=== PATIENT | female | born 1955 | race Caucasian/White ===

== ENCOUNTER 2017-12-19 17:43 | Inpatient (IN) | payer OTHER ==
[2017-12-19] VITALS (9 sets, daily range): BP systolic 148–213; BP diastolic 78–119
[~2017-12-19] VITALS: Ht 160 cm; Wt 81.6 kg
[2017-12-19] MEDS ORDERED: ZYRTEC10 M5 PO (17:49)
[2017-12-19 18:04] LABS: ABSOLUTE BASOPHILS 0.1 thou/uL (0.0-0.2); ABSOLUTE EOSINOPHILS 0.1 thou/uL (0.0-0.7); ABSOLUTE LYMPHOCYTES 1.5 thou/uL (0.8-5.3); ABSOLUTE MONOCYTES 0.7 thou/uL (0.0-1.2); ABSOLUTE NEUTROPHILS 7.9 thou/uL (1.6-8.1); BASOPHILS 0.6 %; EOSINOPHILS 0.5 %; HEMATOCRIT 44.3 % (37.0-47.0); LYMPHOCYTES 14.5 %; MCH 29.4 pg (26.0-34.0); MCHC 33.8 g/dL (28.0-37.0); NUCLEATED RBCS 0 /100WBC; PLATELET COUNT* 267 thou/uL (150-400); POLYS 77.4 %; RBC 5.09 mil/uL (4.20-5.00); RDW-CV 13.6 % (10.5-14.5); WBC 10.2 thou/uL (4.0-11.0)
[2017-12-19 18:13] LABS: CALCIUM 9.3 mg/dL (8.5-10.1); CREATININE 0.6 mg/dL (0.6-1.3); POTASSIUM 4.2 mmol/L (3.5-5.1)
[2017-12-19 18:19] LABS: ALBUMIN 3.7 g/dL (3.4-5.0); MAGNESIUM 1.8 mg/dL (1.8-2.4); TOTAL BILIRUBIN 0.5 mg/dL (<0.1-1.0); TOTAL PROTEIN 7.7 g/dL (6.4-8.2)
[2017-12-19 18:23] LABS: TROPONIN-I LEVEL 0.9 ng/mL (<0.06)
[2017-12-19 19:10] LABS: APTT 31.5 Seconds (25.0-31.3); PROTIME 9.6 Seconds (9.20-11.50)
--- NOTE | 2017-12-19 19:30 | NUR ---
DR. BARNES AND OIL SEPARATOR TEAM AT BEDSIDE.
[2017-12-20] VITALS (9 sets, daily range): BP systolic 128–188; BP diastolic 69–96
--- NOTE | 2017-12-20 04:30 | NUR ---
ASSUMED PT CARE AT 2144, PT WAS BROUGHT IN BY CATH TEAM. PT HAD A RIGHT RADIAL CATH INSERTION SITE, RADSTAT BAND IN PLACE. PT IS TRACING NSR/ST ON THE MONITOR, ON RA SATTING MID TO HIGH 90'S, PT DENIES ANY PAIN AT THIS TIME. POST CATH VITALS COMPLETED CHARTED, RADSTAT GRADUALLLY REDUCED AND REMOVED AT 0200 WITHOUT ISSUE. PRN HYDRALIZINE GIVEN PER AUG. PT IS UP WITH STB TO THE BSC, PT HAS IVF INFUSING PER AUG. ONE STENT PLACED TO THE CIRCUMFLEX ARTERY. ADMISSION COMPLETED CHARTED. BED IN LOW POSITION, CALL LIGHT IN REACH, BED ALARM ON, HOURLY ROUNDING COMPLETED FOR PT SAFETY.
[2017-12-20 05:16] LABS: HEMATOCRIT 42.1 % (37.0-47.0); HEMOGLOBIN 13.8 gm/dL (12.0-15.0); MCH 28.7 pg (26.0-34.0); MCHC 32.9 g/dL (28.0-37.0); MCV 87.1 fL (80.0-100.0); MPV 10.2 fl. (7.2-11.1); RBC 4.83 mil/uL (4.20-5.00); RDW-CV 13.9 % (10.5-14.5); WBC 11.8 thou/uL (4.0-11.0)
[2017-12-20 05:46] LABS: ANION GAP 10 mmol/L (7-16); BUN 5 mg/dL (7-18); CALCIUM 9.2 mg/dL (8.5-10.1); CHLORIDE 104 mmol/L (98-107); CHOLESTEROL 209 mg/dL (<200); CO2 24 mmol/L (21-32); CREATININE 0.5 mg/dL (0.6-1.3); GLUCOSE 261 mg/dL (70-99); HDL CHOLESTEROL 31 mg/dL (>40); LDL CHOLESTEROL 155 mg/dL (<100); POTASSIUM 3.9 mmol/L (3.5-5.1); SODIUM 138 mmol/L (136-145); TC:HDL 6.7 Ratio (Not establshd); TRIGLYCERIDE 117 mg/dL (<150); VLDL 23 mg/dL (<40)
[2017-12-20 05:47] LABS: SERUM ASSESSMENT Clear
[2017-12-20 06:35] LABS: TROPONIN-I LEVEL 48.95 ng/mL (<0.06)
--- NOTE | 2017-12-20 07:19 | CON ---
[address] [address] CONSULTATION Name: RAMOS MORALES Room: [address] ADM IN M.R.#: [id number] Admission: 12/19/17 Attend Phys: Woody Ho MD, F Discharge: Date of : 51 Report #: [id number] THIS REPORT FOR: //name// CC: Woody Ho [facility] physician/PCP Nathaniel Porter DO DATE OF SERVICE: 12/19/2017 TYPE OF REPORT: Cardiology consultation. HISTORY OF PRESENT ILLNESS: The patient is a 62-year-old white female who I was asked to see in the hospital today after she complained of chest pain. The patient has no previous history of heart disease. She has had a stress test in the past. The history is obtained from the patient as well as some old records. The patient does have a history of chronic back pain and has been to the pain clinic. She does not exercise on a regular basis. Starting yesterday, she began to have intermittent chest tightness. It occurred off and on. It radiated into her back and left arm. It could last up to an hour and resolved. However, today it persisted. She felt nauseated and the pain got worse. Her finally brought her to the emergency room after it lasted several hours. She denied any shortness of breath or diaphoresis. She was seen in the Emergency Room and noted to have an abnormal ECG. Her troponin is borderline elevated. She had a CT scan of the chest that showed no aortic dissection or pulmonary embolus. Cardiology consultation was requested. At this time, the pain persisted. She does become short of breath with exertion. She has had no palpitations or syncope. She denies recent fever or bleeding. She has had no trauma to her chest. The pain was not related to food. PAST MEDICAL HISTORY: She has had a cholecystectomy and hysterectomy. She has a history of diabetes, hypertension and hyperlipidemia. She used to be on metformin, simvastatin, blood pressure pill, although she stopped taking her medications over a year ago and has not seen a physician for 3 years. ALLERGIES: She has an intolerance of SULFA DRUGS and ZYRTEC. MEDICATIONS: The only medicine she takes is Motrin for arthritis in her knees. FAMILY HISTORY: Her father had heart disease. SOCIAL HISTORY: She is . 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 She lives in [place]. Smokes a pack of cigarettes a day and drinks alcohol occasionally. REVIEW OF SYSTEMS: She has had no history of stroke, asthma, peptic ulcer disease, liver disease, kidney disease, [place] [address] CONSULTATION Name: RAMOS MORALES Room: [address] IN [facility].#: [id number] Admission: 12/19/17 Attend Phys: Woody Ho MD, F Discharge: Date of : 51 Report #: [id number] PHYSICAL EXAMINATION: GENERAL: Revealed a middle-aged female lying in bed. She appeared in mild distress. VITAL SIGNS: She had a blood pressure of 140/70 and pulse is 80. HEENT: She was anicteric. Conjunctivae pink. Mucous membranes moist. NECK: Veins do not appear distended. No carotid bruits. CHEST: Clear to auscultation. CARDIOVASCULAR: Regular rate and rhythm. ABDOMEN: Soft. EXTREMITIES: Had no edema. Dorsalis pedis pulse 1+ bilaterally. SKIN: Cool and dry. NEUROLOGICAL: Nonfocal. RADIOLOGICAL DATA: ECG showed a sinus rhythm with ST-segment depression of a millimeter in I and aVL as well 0.5 mm in V6. Her x-rays, she had a lab work today, is still pending. Her CT scan of the chest report done with contrast reveals no aneurysm dissection. Abdominal aorta has plaque. Her chest x-ray in the Emergency Room reveals a normal heart size and clear lung khanna. LABORATORY DATA: Her lab work included sodium 132, potassium 4.2, her BUN is 8, creatinine 0.6 and glucose 274. Liver function studies were normal. Troponin 0.9. White blood cell count 10.2 and hemoglobin 15. Her laboratory is as stated. IMPRESSION AND RECOMMENDATIONS: 1. Xsb-FO-xocgewakh myocardial infarction. Recommend cardiac catheterization. 2. Diabetes. 3. Hypertension. The patient is not taking her medications. 4. Diabetes. The patient not taking medications. 5. Hyperlipidemia. The patient is not taking her medication. 6. Tobacco abuse. 7. Chronic back pain. <ELECTRONICALLY SIGNED> By: Woody Ho MD, [facility] 12/20/17718 52 Daviestefany Ho MD, [facility] /nt
--- NOTE | 2017-12-20 09:55 | NUR ---
PATIENT ALERT DENIES CP OR SOA. TAKING PO WELL UP TO CHAIR. VS WNL. GAVE ZOFRAN FOR NAUSEA TIMES ONE WITHOUT CHEST PAIN.
--- NOTE | 2017-12-20 11:15 | NUR ---
SPOKE WITH PT. SHE LIVES WITH HER , HAS BEEN ACTIVE AND INDEP AT HOME. PT HAS SUPPORTIVE FAMILY. PT DENIES ANY DISCHARGE NEEDS. PT KNOWS SHE NEEDS ANOTHER CATH WITH STENT, SHE SAID SHE THINKS THAT WILL BE ON WEDNESDAY. DISCUSSED ROLE OF CASE MGT, WILL CONTINUE TO FOLLOW.
--- NOTE | 2017-12-20 14:21 | NUR ---
PATIENT UP IN ROOM NO CP OR ECTOPY REPORT GIVEN TO LETITIA. TRANSFERED TO RM 205.
--- NOTE | 2017-12-20 18:14 | 2DMMODE ---
[place] [address] 2 D/M-MODE ECHOCARDIOGRAM Name: RAMOS MORALES Room: [address] IN ..#: [id number] Admission: 12/19/17 Attend Phys: Woody Ho MD Discharge: Date of : 51 Date of Service: 12/20/17 1813 Report #: [id number] THIS REPORT FOR: //name// APPROVED REPORT Study performed: 12/20/2017 09:43:10 EXAM: Comprehensive 2D, Doppler, and color-flow Echocardiogram Patient Location: In-Patient Room #: 003 Status: routine BSA: 1.85 HR: 86 bpm BP: 150/90 mmHg Rhythm: NSR Other Information Study Quality: Good Indications Acute ND 2D Dimensions LVEF(%): 41.92 (>50%) IVSd: 11.48 (7-11mm) LVOT Diam: 19.24 (18-24mm) LVDd: 46.15 mm PWd: 11.35 (7-11mm) Ascending Ao: 34.52 (22-36mm) LVDs: 36.69 (25-40mm) Aortic Root: 31.30 mm Chou's LVEF: 41.92 % Volumes Left Atrial Volume (Systole) LA ESV Index: 34.90 mL/m2 Aortic Valve AoV Peak Teo.: 1.31 m/s AO Peak Gr.: 6.84 mmHg LVOT Max P.06 mmHg AO Mean Gr.: 3.97 mmHg LVOT Mean P.22 mmHg LVOT Max V: 1.12 m/s AO V2 VTI: 25.33 cm LVOT Mean V: 0.67 m/s GABBIE (VTI): 2.38 cm2 LVOT V1 VTI: 20.70 cm Mitral Valve E/A Ratio: 0.63 [place] [address] 2 D/M-MODE ECHOCARDIOGRAM Name: RAMOS MORALES Room: [address] IN .R.#: [id number] Admission: 12/19/17 Attend Phys: Woody Ho MD Discharge: Date of : 51 Date of Service: 12/20/17 1813 Report #: [id number] MV Decel. Time: 163.68 ms MV E Max Teo.: 0.78 m/s MV PHT: 47.47 ms MVA (PHT): 4.63 cm2 TDI E/Lateral E': 7.09 E/Medial E': 8.67 Medial E' Teo.: 0.09 m/s Lateral E' Teo.: 0.11 m/s Pulmonary Valve PV Peak Teo.: 0.98 m/s PV Peak Gr.: 3.87 mmHg Left Ventricle The left ventricle is normal size. Regional wall motion abnormalities are noted with mild lateral hypokinesis Borderline concentric left ventricular hypertrophy. Left ventricular systolic function is normal. The left ventricular ejection fraction is within the normal range. LVEF is 50-55%. Grade I - abnormal relaxation pattern. Right Ventricle The right ventricle is normal size. The right ventricular systolic function is normal. Atria The left atrium size is normal. The right atrium size is normal. Aortic Valve The aortic valve is normal in structure. No aortic regurgitation is present. There is no aortic valvular stenosis. Mitral Valve The mitral valve is normal in structure. Mild mitral regurgitation. No evidence of mitral valve stenosis. Tricuspid Valve The tricuspid valve is normal in structure. There is no tricuspid valve regurgitation noted. Pulmonic Valve The pulmonary valve is normal in structure. There is no pulmonic valvular regurgitation. Great Vessels The aortic root is normal in size. IVC [place] [address] 2 D/M-MODE ECHOCARDIOGRAM Name: RAMOS MORALES Room: [address] IN M.R.#: [id number] Admission: 12/19/17 Attend Phys: Woody Ho MD Discharge: Date of : 51 Date of Service: 12/20/17 1813 Report #: [id number] collapses with >50% inspiration Pericardium There is no pericardial effusion. <Conclusion> The left ventricle is normal size. Borderline concentric left ventricular hypertrophy. Left ventricular systolic function is normal. The left ventricular ejection fraction is within the normal range. LVEF is 50-55%. Grade I - abnormal relaxation pattern. The right ventricle is normal size. The left atrium size is normal. The aortic valve is normal in structure. The mitral valve is normal in structure. Mild mitral regurgitation. The tricuspid valve is normal in structure. IVC is normal in size and collapses with >50% inspiration There is no pericardial effusion. Regional wall motion abnormalities are noted with mild lateral hypokinesis <ELECTRONICALLY SIGNED> By: Daryl Pepper MD, FACC 12/20/171812 12 12 Daryl Pepper MD, FACC /INF
--- NOTE | 2017-12-20 18:43 | NUR ---
RECEIVED REPORT FROM ALEX IN ICU. PT TRANSFERED TO UNIT AROUND 1445. ASSUMED CARE. PT A&O X4. VSS. O2 SAT >90% ON RA. SOCIAL SERVICES AIDE IN PLACE TRACING 92. LUNGS CLR/DIM THROUGHOUT. SKIN INTACT. RIGHT RADIAL CATH SITE DRESSING CDI. IV'S TO RIGHT AND LEFT AC INTACT AND SALINE LOCKED. PT DENIES PAIN OR DISCOMFORT. PT SEEN BY CARDIAC REHAB NURSE, PT TO HAVE ADDITIONAL CARDIAC CATH WEDNESDAY. FAMILY AT BEDSIDE THIS AFTERNOON. PT INFORMED OF PLAN OF CARE, COMMUNCIATES UNDERSTANDING. THIS RN AGREES WITH ASSESSMENT AND CHARTING OF ALEX GUTIÉRREZ. PT CURRENTLY RESTING IN BED WATCHING TV. CALL LIGHT IS WITHIN REACH, LOW FALL RISK PRECAUTIONS IN PLACE. HOURLY ROUNDING PERFORMED. WCTM FOR DURATION OF SHIFT.
--- NOTE | 2017-12-20 22:59 | NUR ---
RECEIVED REPORT AND ASSUMED CARE OF PATIENT AT 1930. THREADING MACHINE FEEDER AUTOMATIC IN PLACE TRACING SR. ASSESSMENT AND VITALS COMPLETED CHARTED, VSS. PATIENT A&OX4. PATIENT DENIES PAIN AND DISCOMFORT. RIGHT RADIAL CATH SITE DRESSING C/D/I. THERE IS SOME BRUISING NOTED ABOVE THE CATH SITE, HOWEVER, IT IS SOFT AND NON-TENDER. GOAL IS FOR PATIENT TO REMAIN WITHOUT CHEST PAIN AND HAVE NO COMPLICATIONS WITH RADIAL CATH SITE. CALL LIGHT WITHIN REACH
[2017-12-21] VITALS (8 sets, daily range): BP systolic 109–168; BP diastolic 57–100
[2017-12-21 05:25] LABS: CALCIUM 9.3 mg/dL (8.5-10.1); CREATININE 0.5 mg/dL (0.6-1.3); POTASSIUM 3.9 mmol/L (3.5-5.1)
[2017-12-21 05:34] LABS: TROPONIN-I LEVEL 12.07 ng/mL (<0.06)
--- NOTE | 2017-12-21 05:37 | NUR ---
PATIENT PROGRESSING TOWARDS GOALS: RIGHT RADIAL CATH SITE DRESSING REMAINS C/D/I, NO HEMATOMA OR SIGNS OF BLEEDING. PATIENT DENIES CHEST PAIN AND DISCOMFORT THROUGHOUT SHIFT. TROPONIN TRENDING DOWN. VSS ON ROOM AIR. HOURLY ROUNDING OBSERVED. CALL LIGHT WITHIN REACH
--- NOTE | 2017-12-21 07:45 | NUR ---
RECEIVED REPORT. ASSUMED CARE OF PT AT 0730. VSS. CARDIAC MONTIORING IN PLACE SR. AM ASSESSMENT AND VITALS COMPELTED CHARTED. PT ALERT AND ORIENTED. PT ON RA. IV SALINE LOCKED. PT DENIES ANY COMLAITNS OF PAIN OR DISCOMFORT THIS AM. PT SHOWERED THIS AM. PT IS UP INDEPENDENTLY IN ROOM. PT INFORMED OF PLAN OF CARE. PLAN FOR CARDIAC CATH 12/22. PT COMMUNICATES UNDERSTANDING. CALL LIGHT IS WITHIN REACH. WILL CONTINUE TO MONITOR FOR DURATION OF SHFIT.
--- NOTE | 2017-12-21 13:31 | EKG ---
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: SOL : 1955 Requested By: Nathaniel Euceda Order Number: [id number] MD: Bi Paredes Measurements Intervals [place] Rate: 102 P: 72 NM: 201 QRS: 33 QRSD: 121 T: -5 QT: 351 QTc: 458 Interpretive Statements Sinus tachycardia Biatrial enlargement Nonspecific intraventricular conduction delay Anteroseptal infarct, old Minimal ST depression, lateral leads ST elevation, consider inferior injury Baseline wander in lead(s) III No previous ECG available for comparison Electronically Signed On 12-21-2017 13:31:34 CDT by Bi Paredes [email or web address] <ELECTRONICALLY SIGNED> By: Bi Paredes MD, [facility] 12/21/17 1331 1753 1753 Bi Paredes MD, [facility] /EPI
--- NOTE | 2017-12-21 13:31 | EKG ---
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
--- NOTE | 2017-12-21 13:31 | EKG ---
[place] [address] ELECTROCARDIOGRAM REPORT Name: RAMOS MORALES Room: [address] IN .R.#: [id number] Admission: 12/19/17 Attend Phys: Woody Ho MD, F Discharge: Date of : 51 Report #: [id number] THIS REPORT FOR: //name// [facility] ED Test Date: 2017-12-19 Test Time: 17:49:26 Pat Name: RAMOS MORALES Department: Room: Gender: F Captain Of Guards: Abdi : 1955 Requested By: Nathaniel Euceda Order Number: [id number] MD: Bi Paredes Measurements Intervals [place] Rate: 106 P: 78 DC: 197 QRS: 64 QRSD: 101 T: -19 QT: 343 QTc: 456 Interpretive Statements Prolonged DC interval Biatrial enlargement Right ventricular hypertrophy No previous ECG available for comparison Electronically Signed On 12-21-2017 13:31:28 CDT by Bi Paredes [email or web address] <ELECTRONICALLY SIGNED> By: Bi Paredes MD, [facility] 12/21/17 1331 1749 1749 Bi Paredes MD, [facility] /EPI
--- NOTE | 2017-12-21 13:32 | EKG ---
[place] [address] ELECTROCARDIOGRAM REPORT Name: RAMOS MORALES Room: [address] IN .R.#: [id number] Admission: 12/19/17 Attend Phys: Woody Ho MD, F Discharge: Date of : 51 Report #: [id number] THIS REPORT FOR: //name// [facility] Test Date: 2017-12-19 Test Time: 22:27:03 Pat Name: RAMOS MORALES Department: Room: Gender: F Treasury Associate: : 1955 Requested By: Nathaniel Euceda Order Number: [id number] MD: Bi Paredes Measurements Intervals [place] Rate: 97 P: 150 IN: 210 QRS: -25 QRSD: 99 T: -35 QT: 396 QTc: 503 Interpretive Statements Sinus or ectopic atrial rhythm Borderline prolonged IN interval Left atrial enlargement Inferior infarct, age indeterminate Anterior infarct, old Prolonged QT interval No previous ECG available for comparison Electronically Signed On 12-21-2017 13:32:22 CDT by Bi Paredes [email or web address] <ELECTRONICALLY SIGNED> By: Bi Paredes MD, [facility] 12/21/17 1332 2227 2227 Bi Paredes MD, [facility] /EPI
--- NOTE | 2017-12-21 13:32 | EKG ---
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: RAMESH : 1955 Requested By: Nathaniel Euceda Order Number: [id number] Reading MD: Bi Paredes Measurements Intervals [place] Rate: 98 P: 71 [place]: 207 QRS: 14 QRSD: 94 T: 42 QT: 364 QTc: 465 Interpretive Statements Sinus rhythm Borderline prolonged UT interval LAE, consider biatrial enlargement Probable anteroseptal infarct, recent No previous ECG available for comparison Electronically Signed On 12-21-2017 13:31:59 CDT by Bi Paredes [email or web address] <ELECTRONICALLY SIGNED> By: Bi Paredes MD, [facility] 12/21/17 1331 1834 1834 Bi Paredes MD, [facility] /EPI
--- NOTE | 2017-12-21 13:37 | EKG ---
[place] [address] ELECTROCARDIOGRAM REPORT Name: RAMOS MORALES Room: [address] ADM IN .R.#: [id number] Admission: 12/19/17 Attend Phys: Woody Ho MD, F Discharge: Date of : 51 Report #: [id number] THIS REPORT FOR: //name// [facility] Test Date: 2017-12-20 Test Time: 07:42:24 Pat Name: RAMOS MORALES Department: Room: [address] Gender: F Roll Weigher: [facility] : 1955 Requested By: Woody Ho Order Number: [id number] Reading : Bi Paredes Measurements Intervals [place] Rate: 88 P: 77 [place]: 211 QRS: 2 QRSD: 95 T: 65 QT: 325 QTc: 394 Interpretive Statements Sinus rhythm Right atrial enlargement Anterior infarct, old No previous ECG available for comparison Electronically Signed On 12-21-2017 13:36:56 CDT by Bi Paredes [email or web address] <ELECTRONICALLY SIGNED> By: Bi Paredes MD, [facility] 12/21/17 1336 1 Bi Paredes MD, [facility] /EPI
--- NOTE | 2017-12-21 17:06 | NUR ---
VSS. CARDIAC MONTIORING IN PLACE WITH NO CHANGES THIS SHIFT. PT PROGRESSING TOWARDS GOALS. PT REMAINS ON RA. PT REMAINS ALET AND ORIENTED. PT VOICED NO COMPLAINTS OF PAIN OR DISCOMFORT THIS SHIFT. PT'S BLOOD SUARS ELEVATED THIS SHIFT. PT HAD MULTIPLE VISITORS THIS SHIFT. PT IS UP INDEPENDENTLY IN ROOM. PLAN FOR CATH TOMORROW. PT INFORMED OF PLAN OF CARE. CALL LIGHT IS WITHIN REACH. WILL CONTINUE TO MONTIOR FOR DURATION OF SHIFT.
--- NOTE | 2017-12-21 22:00 | NUR ---
Received report and assumed care of patient at 1930. environmental monitoring technician in place tracing SR. Assessment and vitals completed as charted, VSS on room air. Patient A&Ox4. Patient denies pain and discomfort. Right radial cath site open to air, no bleeding or hematoma. Bruising noted above site but is non-tender and soft. Patient NPO for cardiac cath 12/22. Patient aware and verbalizes understanding. Goal is to rest comfortably without pain or discomfort. Call light within reach
[2017-12-22] VITALS (11 sets, daily range): BP systolic 130–196; BP diastolic 60–99
--- NOTE | 2017-12-22 03:33 | NUR ---
Patient moved to room 225 for maintainance of plumbing. All patient's belongings moved and patient settled in new room. Call light within reach
--- NOTE | 2017-12-22 07:51 | CARD ---
[address] [address] CARDIAC CATH REPORT Name: RAMOS MORALES Room: [address] IN .R.#: [id number] Admission: 12/19/17 Attend Phys: Woody Ho MD, F Discharge: Date of : 51 Report #: [id number] THIS REPORT FOR: //name// APPROVED REPORT Study performed: 12/19/2017 20:07:54 Patient Details Patient Status: In-Patient Room #: The patient is a 62 year-old female Event Personnel Woody Ho Senior Qa Engineer, Humberto Mckenna Monitor, Fang Perez RN, Brittany Stephenson RTR Scrub Procedures Performed Left Heart Cath w/or w/o Coronaries [id number] [facility] [address] w/wo Plasty Single CIRC 324201 Hemostasis with Hemoband Indication Abnormal ECG, Non-STEMI , Chest pain Risk Factors Arterial Hypertension, Hypercholesterolemia, Diabetes Tobacco History () Admission/Lab Medications/Medications given during procedure Platelet Aff. Inhib., Heparin Unfract. Procedure Narrative The patient was brought urgently to the Cardiac Catheterization Laboratory and was prepped and draped in a sterile manner. The right wrist was infiltrated with 2% Lidocaine subcutaneous anesthesia. A Slender Glidesheath sheath was inserted into the right radial artery. Coronary angiography was performed using coronary diagnostic catheters. The right coronary system was accessed and visualized with a JR4 5fr catheter. The left coronary system was accessed and visualized with a JL 3.5 5fr catheter. Left ventricular/Aortic Valve gradient assessed via catheter pullback. Closure device was deployed with a 6 Fr Vasc-Band Reg 24cm. The patient tolerated the procedure well and there were no complications associated with the procedure. There was no hematoma. Intraoperative Conscious Sedation Sedation start time: 20:05 Case end Time: [place] [address] CARDIAC CATH REPORT Name: RAMOS MORALES Room: [address] IN [facility].#: [id number] Admission: 12/19/17 Attend Phys: Woody Ho MD, F Discharge: Date of : 51 Report #: [id number] 20:54 Fentanyl 25 mcg Versed 2 mg Fluoro Time: 6.3 minutes Dose: DAP 95434 cGycm2 1344 mGy Contrast Type and Amount: Omnipaque 110 ml Coronary Angiography The patient's coronary anatomy is right dominant. Diagnostic Cath Left Main 0% stenosis LAD 80% mid stenosis Circumflex acutely occluded after small first marginal branch OM2 chronically occluded and fills by collaterals OM3 80% mid stenosis R PDA 80% proximal stenosis RPLV 70% proximal, 70% mid, and 70% distal stenosis Left Ventriculography Left Ventriculography was not performed. Hemodynamics The aortic pressure is 155/84 mmHg with a mean of mmHg. The left ventricular pressure is 159/10 mmHg with a mean of mmHg. The left ventricular end diastolic pressure is 21 mmHg. There was no gradient across the aortic valve upon pullback. Pullback from the left ventricle to the aorta revealed no gradient across the aortic valve. PCI Technique Lesion Anticoagulation was achieved with Heparin. iv aggrastat was given Patient was preloaded with Brillinta. Percutaneous coronary intervention was performed on the proximal circumflex artery segment. The lesion stenosis prior to intervention was 100% with NOAH 0 flow. A 6FR XB 3.5 100CM Guide Catheter was used to engage the lm ostium. A IG: BMW 190cm Interventional Guidewire was used to cross the lesion. BALLOON DILATION A Balloon catheter Trek RX 2.5 X 8 was inserted and inflated up to 10.00atm for 11seconds. Repeat angiography revealed the following post-dilatation results: 80% stenosis. Additional Inflation: 12.00atm for 14seconds. Additional Inflation: 14.00atm [place] 14[place]. [place] [address] CARDIAC CATH REPORT Name: RAMOS MORALES Room: [address] IN [facility].#: [id number] Admission: 12/19/17 Attend Phys: Woody Ho MD, F Discharge: Date of : 51 Report #: [id number] STENT DEPLOYMENT A bare metall stent Vision RX 2.75 X 15 was inserted and inflated up to 11.00atm for 14seconds. Repeat angiography revealed the following post-stent deployment results: 0% stenosis. Additional Inflation: 15.00atm for 20seconds. Final angiography reveals 0 % stenosis with NOAH 3 flow. Conclusion 1. diffuse multivessel cad 2. acute occlusion of the mid circumflex artery 3. successful placement of a bare metal stent in the proximal circumflex artery Recommendations Smoking Cessation Aggressive Medical Therapy Medical Therapy CABG Medications Administered Ticagrelor <ELECTRONICALLY SIGNED> By: Woody Ho MD, [facility] 12/20/17 1302 1302 1302Daviestefany Ho MD, [facility] /INF
[2017-12-23 00:24] VITALS: BP 145/77
--- NOTE | 2017-12-23 03:57 | NUR ---
ASSUMED PT CARE 193. ASSESSMENT COMPLETED CHARTED. PT UP OFF BEDREST AT 10PM WITH NO COMPLICATIONS. SITE IS CLEAN, DRY, WITH SLIGHT BRUISING NOTED AROUND GUAZE PAD, NO HARD AREAS OR SWELLING NOTED. PT DENIES PAIN. PT RESTING IN BED AT THIS TIME. POSS D/C TODAY. WILL CONTINUE TO MONITOR.
[2017-12-23 04:36] LABS: HEMATOCRIT 37.9 % (37.0-47.0); HEMOGLOBIN 12.7 gm/dL (12.0-15.0); MCHC 33.5 g/dL (28.0-37.0); MCV 86.7 fL (80.0-100.0); MPV 10.1 fl. (7.2-11.1); RBC 4.37 mil/uL (4.20-5.00); RDW-CV 13.7 % (10.5-14.5); WBC 8.4 thou/uL (4.0-11.0)
[2017-12-23 05:38] VITALS: BP 139/69
[2017-12-23 05:57] LABS: ALBUMIN 2.9 g/dL (3.4-5.0); CREATININE 0.4 mg/dL (0.6-1.3); POTASSIUM 4.3 mmol/L (3.5-5.1); TOTAL BILIRUBIN 0.5 mg/dL (<0.1-1.0); TOTAL PROTEIN 5.8 g/dL (6.4-8.2)
[2017-12-23 05:58] LABS: TROPONIN-I LEVEL 5.91 ng/mL (<0.06)
[2017-12-23 08:30] VITALS: BP 167/96
[2017-12-23 11:26] VITALS: BP 136/73
[2017-12-23] MEDS ORDERED: ATORVASTATIN CA40 MG PO (11:32)
[2017-12-23] MEDS ORDERED: CARVEDILOL3.125 MG PO (11:32)
[2017-12-23] MEDS ORDERED: LISINOPRIL5 MG PO (11:32)
[2017-12-23] MEDS ORDERED: BRILINTA90 MG PO (11:32)
[2017-12-23] MEDS ORDERED: ASPIR 8181 MG PO (11:32)
[2017-12-23] MEDS ORDERED: GLUCOTROL5 MG PO (11:32)
[2017-12-23] MEDS ORDERED: GLUCOPHAGE500 MG PO (11:32)
[2017-12-23] MEDS ORDERED: NITROGLYCERIN0.4 MG SUBLING (11:32)
[2017-12-23 11:46] VITALS: BP 136/73
--- NOTE | 2017-12-23 13:04 | EKG ---
[place] [address] ELECTROCARDIOGRAM REPORT Name: RAMOS MORALES Room: [address] ADM IN M.R.#: [id number] Admission: 12/19/17 Attend Phys: Woody Ho MD, F Discharge: Date of : 51 Report #: [id number] THIS REPORT FOR: //name// [facility] Test Date: 2017-12-22 Test Time: 18:16:52 Pat Name: RAMOS MORALES Department: Room: [address] Gender: F Inspector And Mender: ALLIE : 1955 Requested By: Daryl Pepper Order Number: [id number] Taran MD: Daryl Pepper Measurements Intervals [place] Rate: 80 P: 75 NM: 204 QRS: 7 QRSD: 89 T: 24 QT: 373 QTc: 431 Interpretive Statements Sinus rhythm Biatrial enlargement Anterior infarct, old Compared to ECG 12/20/2017 07:42:24 No significant changes Electronically Signed On 12-23-2017 13:04:05 CDT by Daryl Pepper [email or web address] <ELECTRONICALLY SIGNED> By: Daryl Pepper MD, [facility] 12/23/17 1304 181 15 Daryl Pepper MD, [facility] /EPI
--- NOTE | 2017-12-23 13:07 | EKG ---
[place] [address] ELECTROCARDIOGRAM REPORT Name: RAMOS MORALES Room: [address] ADM IN M.R.#: [id number] Admission: 12/19/17 Attend Phys: Woody Ho MD, F Discharge: Date of : 51 Report #: [id number] THIS REPORT FOR: //name// [facility] Test Date: 2017-12-23 Test Time: 03:37:01 Pat Name: RAMOS MORALES Department: Room: [address] Gender: F Natural History Collections Curator: patti : 1955 Requested By: Daryl Pepper Order Number: [id number] Taran MD: Daryl Pepper Measurements Intervals [place] Rate: 76 P: 73 NC: 202 QRS: -4 QRSD: 96 T: 37 QT: 411 QTc: 463 Interpretive Statements Sinus rhythm Right atrial enlargement Anterior infarct, old Compared to ECG 12/20/2017 07:42:24 No significant changes Electronically Signed On 12-23-2017 13:07:22 CDT by Daryl Pepper [email or web address] <ELECTRONICALLY SIGNED> By: Daryl Pepper MD, [facility] 12/23/17 1307 0337 6 Daryl Pepper MD, FAC /EPI
--- NOTE | 2017-12-23 13:32 | NUR ---
ASSUMED PT CARE AT 0730, FULL ASSESMENT DONE CHARTED. PT A/O X4, DENIES PAIN, UP AD NOEMY. SR ON THE MONITOR, VSS, LABS REVIEWED. RECIEVED DISCHARGE ORDERS. PT PROVIDED WITH GLUCOMETER, WAS GIVEN SCRIPTS AND CARENOTES, REVIEWED DISCHARGE ORDERS WITHPT, ALL QUESTIONS ANSWERED. PT DISCHARGED HOME WITH AT APPROX 1330
--- NOTE | 2017-12-23 13:52 | CARD ---
[address] [address] CARDIAC CATH REPORT Name: RAMOS MORALES Room: [address] IN M.R.#: [id number] Admission: 12/19/17 Attend Phys: Woody Ho MD, F Discharge: 12/23/17 Date of : 51 Report #: [id number] THIS REPORT FOR: //name// APPROVED REPORT Study performed: 12/22/2017 14:59:40 Patient Details Patient Status: In-Patient Room #: 225 The patient is a 62 year-old female Event Personnel Daryl Pepper Box Hinge And Lock Attacher, Selam Marquez RN RN, Harriet Le Monitor, Kamala Chi RTNadeen Monitor, Jaden Ashton Scrub Procedures Performed Art Access - R femoral artery* , Left Heart Catheterization, Selective Right and Left Coronary Angiography; left heart catheterization, PTCA with Stenting Indication Non-STEMI , Chest pain Risk Factors Hypercholesterolemia, Hypertension Previous Procedures/Diagnoses Previous PCI, Previous MA Admission/Lab Medications/Medications given during procedure Platelet Aff. Inhib., Angiomax bolus and infusion Procedure Narrative The patient was brought electively to the Cardiac Catheterization Laboratory and was prepped and draped in a sterile manner. The right femoral was infiltrated with 2% Lidocaine subcutaneous anesthesia. A 6fr Ultimum Sheath sheath was inserted into the right femoral artery. Coronary angiography was performed using coronary diagnostic catheters. The right coronary system was accessed and visualized with a 6FR JR4 catheter. The left coronary system was accessed and visualized with a 6FR JL4 catheter. The left ventricle was accessed and visualized with a 6FR PIGTAIL catheter. Left ventricular/Aortic Valve gradient assessed via catheter pullback. Pre-demployment femoral angiogram was performed . Closure [place] [address] CARDIAC CATH REPORT Name: RAMOS MORALES Room: [address]#: [id number] Admission: 12/19/17 Attend Phys: Woody Ho MD, F Discharge: 12/23/17 Date of : 51 Report #: [id number] 6 Fr Angioseal STS 6Fr. Hemostasis was obtained with manual pressure following sheath removal without any complications. The patient tolerated the procedure well and there were no complications associated with the procedure. There was no hematoma. Intraoperative Conscious Sedation Sedation start time: 15:33 Case end Time: 16:32 Fentanyl 25 mcg Versed 2 mg Fluoro Time: 15.9 minutes Dose: DAP [id number] cGycm2 1988.83 mGy Contrast Type and Amount: Visipaque 415 ml Coronary Angiography The patient's coronary anatomy is right dominant. Diagnostic Cath Left Main 0% narrowing LAD 90% mid vessel stenosis Diagonal 1 80% ostial narrowing Circumflex Widely patent mid circumflex stent with tubular 75% stenosis of the mid circumflex beyond the stented region Right Coronary Small but dominant vessel with 70% proximal and 50-60% mid vessel narrowing with small terminal branches to the septum Left Ventriculography Left Ventriculography was not performed. Hemodynamics The aortic pressure is 152/77 mmHg with a mean of 106 mmHg. The left ventricular pressure is 152/13 mmHg with a mean of mmHg. The left ventricular end diastolic pressure is 22 mmHg. There was no gradient across the aortic valve upon pullback. PCI Technique Lesion Anticoagulation was achieved with Angiomax. Percutaneous coronary intervention was performed on the first diagnonal branch segment. The lesion stenosis prior to intervention was 80% with NOAH 3 flow. A 6F XB LAD 3.5 Guide Catheter was used to engage the ostium. A IG: ProwaterFlex 180CM Interventional Guidewire was used to cross the lesion. BALLOON DILATION A Balloon catheter Mini Trek RX 2.0 X 8 was inserted and inflated up to 10.00atm for 8seconds. Additional Inflation: 12.00[place] [address] CARDIAC CATH REPORT Name: RAMOS MORALES Room: [address]#: [id number] Admission: 12/19/17 Attend Phys: Woody Ho MD, F Discharge: 12/23/17 Date of : 51 Report #: [id number] 11seconds. Final angiography reveals 10 % stenosis with NOAH 3 flow. PCI Technique Lesion 2 Percutaneous Coronary Intervention was performed on the mid left anterior descending artery segment. The lesion stenosis prior to intervention was 90% with NOAH 3 flow. A IG: ProwaterFlex 180CM Interventional Guidewire was used to cross the lesion. Balloon Dilation A Balloon catheter Trek RX 2.5 X 15 was inserted and inflated up to 12.00atm for 10seconds. Stent Deployment A drug-eluting stent Xience Alpine RX 2.5X28 was inserted and inflated up to 12.00atm for 10seconds. Additional Inflation: 16.00atm for 10seconds. Additional Inflation: 17.00atm for 11seconds. Final angiography reveals 10 % stenosis with NOAH 3 flow. PCI Technique Lesion 3 Percutaneous Coronary Intervention was performed on the mid circumflex artery segment. The lesion stenosis prior to intervention was 75% with NOAH 3 flow. A IG: BMW 190cm Interventional Guidewire was used to cross the lesion. Balloon Dilation A Balloon catheter Trek RX 2.5 X 15 was inserted and inflated up to 12.00atm for 8seconds. Additional Inflation: 12.00atm for 8seconds. Stent Deployment A drug-eluting stent Xience Alpine RX 2.5X28 was inserted and inflated up to 14.00atm for 11seconds. Additional Inflation: 18.00atm for 9seconds. Post Stent Deployment Balloon Dilation A Balloon catheter NC Trek RX 2.75X15 was inserted and inflated up to 16.00atm for 9seconds. Additional Inflation: 16.00atm for 8seconds. Additional Inflation: 15.00atm for 7seconds. Final angiography reveals 0 % stenosis with NOAH [address] flow[address] Conclusion [address] [place] [address] CARDIAC CATH REPORT Name: RAMOS MORALES Room: [address] IN M.R.#: [id number] Admission: 12/19/17 Attend Phys: Woody Ho MD, F Discharge: 12/23/17 Date of : 51 Report #: [id number] #1 significant multivessel coronary artery disease characterized by the following: A 90% mid LAD stenosis with 80% ostial first diagonal narrowing B 75% tubular narrowing of the mid circumflex beyond the previously stented segment C small but dominant right coronary artery with 70% proximal and 50-60% mid vessel stenosis with 2 small terminal branches to the septum and apex respectively #2 moderate elevation of left ventricular end-diastolic pressure at rest #3 successful percutaneous transluminal coronary angioplasty at the site of 80% first diagonal stenosis with 20% residual narrowing and NOAH-3 flow to the distal vessel #4 successful percutaneous coronary intervention with deployment of drug-eluting stent at site of 90% tubular mid LAD stenosis with 10% residual narrowing and NOAH-3 flow to the distal vessel #5 successful percutaneous coronary intervention with deployment of drug-eluting stent at site of 75% tubular mid circumflex stenosis with 0% residual narrowing and NOAH-3 flow to the distal vessel Recommendations Cardiac Risk Reduction Program Aggressive Medical Therapy Medications Administered Ticagrelor Diagnostic Cath Approved by: Daryl Pepper MD Date/Time: 12/23/17 at 1350 hrs. <ELECTRONICALLY SIGNED> By: Daryl Pepper MD, FACC 12/23/17 1351 1351 1351Daryl Pepper MD, FACC /INF
--- NOTE | 2017-12-24 10:05 | D ---
[address] [address] DISCHARGE SUMMARY Name: RAMOS MORALES Room: [address] IN M.R.#: [id number] Admission: 12/19/17 Attend Phys: Woody Ho MD, F Discharge: 12/23/17 Date of : 51 Report #: [id number] THIS REPORT FOR: //name// CC: Woody Ho [facility] physician/PCP Nathaniel Euceda DATE OF SERVICE: 12/23/2017 FINAL DISCHARGE DIAGNOSES: 1. Lfw-MF-qazqouo elevation myocardial infarction interrupted by stenting of the circumflex. 2. Multivessel coronary artery disease, status post percutaneous coronary intervention of the mid left anterior descending and mid circumflex on 12/23/2017. 3. Type 2 diabetes mellitus. 4. Hypertension. 5. Hyperlipoproteinemia. 6. History of tobacco abuse. 7. Chronic back pain. PROCEDURES: On 12/19/2017 - cardiac catheterization with stenting of the non-dominant circumflex. On 12/23/2017 - cardiac catheterization with stenting of the mid LAD and mid circumflex. HISTORY OF PRESENT ILLNESS: The patient is a 62-year-old female who presented on 12/19/2017 with protracted back and chest discomfort, was found to have a yhg-KM-iblknis elevation myocardial infarction related to total occlusion of the circumflex. Dr. Ho performed urgent catheterization with stenting of the mid circumflex. The patient did well postprocedurally. She was noted to have high grade mid LAD and mid circumflex stenoses as well with diffuse moderate disease throughout and moderate-sized right coronary artery. We discussed the options, elected to proceed with stenting of the mid LAD and mid circumflex after resolution of the events of the initial presentation. She underwent re-catheterization on 12/23/2017 and underwent stenting of the mid LAD with a 2.5 x 28 mm Xience Alpine drug-eluting stent, post-dilated to 2.7 mm with 10% residual narrowing, 2.5 x 28 mm Xience Alpine in the mid circumflex, post-dilated with a noncompliant balloon to 2.8 mm with 0% residual narrowing and NOAH 3 flow to both distal vessels. The patient's peak troponin after the initial infarct was 48 and then gradually fell during the hospitalization. Laboratory on 12/23/2017, after the second catheterization, revealed a hemoglobin 12.7, white blood cell [place] of 8[address] [place] [address] DISCHARGE SUMMARY Name: RAMOS MORALES Room: [address]#: [id number] Admission: 12/19/17 Attend Phys: Woody Ho MD, F Discharge: 12/23/17 Date of : 51 Report #: [id number] platelets of 227,000. Sodium 138, potassium 4.3, BUN 8, creatinine 0.4 and glucose 147 mg percent. DISCHARGE MEDICATIONS: The patient was discharged to home in stable condition on 12/23/2017 on the following medications: Aspirin 81 mg daily; atorvastatin 40 mg at bedtime; carvedilol 3.125 mg b.i.d.; Zyrtec 10 mg daily; glipizide 5 mg b.i.d.; lisinopril 5 mg daily; metformin 500 mg b.i.d., to be resumed on 12/25/2017; ticagrelor 90 mg b.i.d. and p.r.n. sublingual nitroglycerin. The patient is scheduled to return to see Natalia Oconnor on 12/28/2017 at 08:30 and myself on 02/08/2018 at 1400 hours. Thus, the patient is discharged to home in stable condition on the aforementioned medications with followup as iterated above. <ELECTRONICALLY SIGNED> By: Daryl Pepper MD, [facility] 12/24/17 1005 1013 1058Daryl Pepper MD, [facility] /nt
== END 2017-12-23 13:37 | disposition home or self-care (01) | DRG 247 ==
LOC: M.ERS 17:43 → M.CL 17:43 → M.ICU 21:49 → M.TBA-ER 21:49 → M.2W 21:49 → M.ICU 22:08 → M.2W 12-20 14:54
PROVIDERS: Emergency Medicine Emergency Medical Services; Internal Medicine; ADMIT Internal Medicine Cardiovascular Disease
DX: I21.4 Non-ST elevation (NSTEMI) myocardial infarction (principal); I50.32 Chronic diastolic (congestive) heart failure; I25.10 Atherosclerotic heart disease of native coronary artery without angina pectoris; E78.5 Hyperlipidemia, unspecified; I11.0 Hypertensive heart disease with heart failure; E78.00 Pure hypercholesterolemia, unspecified; E11.9 Type 2 diabetes mellitus without complications; F17.210 Nicotine dependence, cigarettes, uncomplicated; G89.29 Other chronic pain; M54.9 Dorsalgia, unspecified; I25.82 Chronic total occlusion of coronary artery; Z88.2 Allergy status to sulfonamides; Z91.14 Patient's other noncompliance with medication regimen; Z90.710 Acquired absence of both cervix and uterus; Z90.49 Acquired absence of other specified parts of digestive tract; Z79.82 Long term (current) use of aspirin; Z79.899 Other long term (current) drug therapy; Z82.49 Family history of ischemic heart disease and other diseases of the circulatory system

== ENCOUNTER → 2018-04-22 | Outpatient (CLI) | payer OTHER ==
[~2018-04-22] MED LIST: ASPIR 8181 MG PO; ATORVASTATIN CA40 MG PO; BRILINTA90 MG PO; CARVEDILOL3.125 MG PO; GLUCOPHAGE500 MG PO; GLUCOTROL5 MG PO; LISINOPRIL5 MG PO; NITROGLYCERIN0.4 MG SUBLING; ZYRTEC10 M5 PO
== END ==
LOC: M.RAD 12:32
DX: Z12.31 Encounter for screening mammogram for malignant neoplasm of breast (principal)

== ENCOUNTER → 2018-07-05 | Outpatient (CLI) | payer BC, OTHER ==
[~2018-07-05] MED LIST changes: +CARVEDILOL12.5 MG PO; +NABUMETONE 750750 M1 PO
== END ==
LOC: M.MRI 06-29 10:04
DX: I67.82 Cerebral ischemia (principal); I65.21 Occlusion and stenosis of right carotid artery; H53.9 Unspecified visual disturbance; I25.2 Old myocardial infarction; R45.86 Emotional lability; H34.8320 Tributary (branch) retinal vein occlusion, left eye, with macular edema

== ENCOUNTER 2018-07-20 07:29 | Observation (INO) | payer BC, OTHER ==
[2018-07-20] VITALS (17 sets, daily range): BP systolic 128–185; BP diastolic 46–79
[~2018-07-20] VITALS: Ht 160 cm; Wt 85.3 kg
[2018-07-20 08:07] LABS: HEMATOCRIT 38.8 % (37.0-47.0); MCH 29.6 pg (26.0-34.0); MCHC 33.5 g/dL (28.0-37.0); MCV 88.3 fL (80.0-100.0); MPV 9.2 fl. (7.2-11.1); RBC 4.39 mil/uL (4.20-5.00); RDW-CV 14.1 % (10.5-14.5); WBC 8.2 thou/uL (4.0-11.0)
[2018-07-20 08:13] LABS: APTT 29.2 Seconds (25.0-31.3); INR 0.9; PROTIME 9.6 Seconds (9.20-11.50)
[2018-07-20 08:14] LABS: ANION GAP 7 mmol/L (7-16); BUN 14 mg/dL (7-18); CALCIUM 9.1 mg/dL (8.5-10.1); CHLORIDE 99 mmol/L (98-107); CO2 27 mmol/L (21-32); CREATININE 0.7 mg/dL (0.6-1.3); GLUCOSE 292 mg/dL (70-99); POTASSIUM 4.5 mmol/L (3.5-5.1); SODIUM 133 mmol/L (136-145)
[2018-07-20] MEDS ORDERED: COZAAR 25 MG TA25 M2 PO (08:14)
[2018-07-20] MEDS ORDERED: LEXAPRO 10 MG T10 MG PO (08:16)
[2018-07-20 08:18] LABS: ALBUMIN 3.8 g/dL (3.4-5.0); ALKALINE PHOSPHATASE 90 U/L (46-116); CHOLESTEROL 154 mg/dL (<200); HDL CHOLESTEROL 57 mg/dL (>40); LDL CHOLESTEROL 81 mg/dL (<100); SERUM ASSESSMENT Clear; SGOT 14 U/L (15-37); SGPT 33 U/L (30-65); TC:HDL 2.7 Ratio (Not establshd); TOTAL BILIRUBIN 0.5 mg/dL (<0.1-1.0); TOTAL PROTEIN 7.1 g/dL (6.4-8.2); TRIGLYCERIDE 83 mg/dL (<150); VLDL 17 mg/dL (<40)
--- NOTE | 2018-07-20 15:58 | EKG ---
[place] [address] ELECTROCARDIOGRAM REPORT Name: RAMOS MORALES Room: [address] M.R.#: [id number] Admission: 07/20/18 Attend Phys: Daryl Pepper MD, Discharge: Date of : 51 Report #: [id number] THIS REPORT FOR: //name// [facility] Test Date: 2018-07-20 Test Time: 08:32:05 Pat Name: RAMOS MORALES Department: Room: [facility] Gender: F Power Barker Operator: : 1955 Requested By: Daryl Pepper Order Number: [id number] Taran MD: Daryl Pepper Measurements Intervals [place] Rate: 65 P: 70 ID: 222 QRS: 16 QRSD: 93 T: 18 QT: 414 QTc: 431 Interpretive Statements Sinus rhythm Prolonged ID interval Anterior infarct, old Compared to ECG 12/23/2017 03:37:01 First degree AV block now present Atrial abnormality no longer present Myocardial infarct finding still present Electronically Signed On 07-20-2018 15:58:38 ADMINISTRATIVE SUPPORT ASSOCIATE by Daryl Pepper [email or web address] <ELECTRONICALLY SIGNED> By: Daryl Pepper MD, [facility] 07/20/18 1558 0832 0832 Daryl Pepper MD, [facility] /EPI
--- NOTE | 2018-07-20 16:03 | EKG ---
[place] [address] ELECTROCARDIOGRAM REPORT Name: RAMOS MORALES Room: [address] M.R.#: [id number] Admission: 07/20/18 Attend Phys: Daryl Pepper MD, Discharge: Date of : 51 Report #: [id number] THIS REPORT FOR: //name// [facility] Test Date: 2018-07-20 Test Time: 12:33:51 Pat Name: RAMOS MORALES Department: Room: [facility] Gender: F Radio Despatcher: NONA : 1955 Requested By: Daryl Pepepr Order Number: [id number] Taran MD: Daryl Pepper Measurements Intervals [place] Rate: 67 P: 70 [place]: 227 QRS: 18 QRSD: 98 T: 15 QT: 437 QTc: 462 Interpretive Statements Sinus rhythm Prolonged OK interval LAE, consider biatrial enlargement Anterior infarct, old Baseline wander in lead(s) V4,V6 Compared to ECG 12/23/2017 03:37:01 First degree AV block now present Myocardial infarct finding still present Electronically Signed On 07-20-2018 16:03:31 RESEARCH AND DEVELOPMENT TECHNICIAN by Daryl Pepper [email or web address] <ELECTRONICALLY SIGNED> By: Daryl Pepper MD, [facility] 07/20/18 1603 1233 1233 Daryl Pepper MD, [facility] /EPI
--- NOTE | 2018-07-20 16:09 | NUR ---
PT ADMITTED ON TELE FLOOR FROM CARDIAC CATH AT 1130 THIS AM. SR ON SENIOR PROJECT COORDINATOR. VSS. ON RA SATURATION IS ABOVE 95%. POST CARDIAC CATH VS AND ASSESSMENT PERFORMED AT ORDERED INTERVAL PER PROTOCOL. SEE CHART. PT IS AOX4. RIGHT GROIN AREA IS INTACT. NO BLEEDING. NS AT 100 PER HOUR IN LEFT AC. PT ON BEDREST AT THIS TIME UNTIL 5 PM. PT ATE LUNCH. USES BEDPAN TO URINATE. PT SAYS THAT SHE HAS TAKEN ALL HER MORNING SCHEDULED MEDICATION. NURSE DID NOT GIVE MORNING MEDICINE AGAIN. SEE EMAR. AROUND 1400, SCANT AMNT OF BLEEDING SEEN ON RIGHT GROIN DRESSING. SITE IS NOT SORE ACCORDING TO PT. WILL CONTINUE TO MONITOR
--- NOTE | 2018-07-20 17:58 | NUR ---
PT NO LONGER ON BEDREST. PT EATING AT THIS TIME. IV FLUID INFUSING IN LEFT AC. VITAL SIGN REMAIN STABLE. SR ON [employer] HEL[employer]TER PILOT.
[2018-07-21] VITALS (7 sets, daily range): BP systolic 149–185; BP diastolic 62–85
[2018-07-21 04:27] LABS: HEMATOCRIT 36.7 % (37.0-47.0); HEMOGLOBIN 12.1 gm/dL (12.0-15.0); MCH 29.2 pg (26.0-34.0); MCV 88.4 fL (80.0-100.0); MPV 9.4 fl. (7.2-11.1); RBC 4.15 mil/uL (4.20-5.00); RDW-CV 14.2 % (10.5-14.5); WBC 7.4 thou/uL (4.0-11.0)
[2018-07-21 04:45] LABS: ALBUMIN 3.2 g/dL (3.4-5.0); CALCIUM 8.5 mg/dL (8.5-10.1); CREATININE 0.7 mg/dL (0.6-1.3); POTASSIUM 4.1 mmol/L (3.5-5.1); TOTAL BILIRUBIN 0.4 mg/dL (<0.1-1.0); TOTAL PROTEIN 6.2 g/dL (6.4-8.2)
[2018-07-21 04:46] LABS: TROPONIN-I LEVEL 1.11 ng/mL (<0.06)
--- NOTE | 2018-07-21 06:13 | NUR ---
RECEIVED REPORT AND ASSUMED CARE AT 1900. VSS. CARDIAC MONITORING IN PLACE. PT DENIES ANY COMPLAINTS OF PAIN. ASSESSMENT COMPLETED CHARTED. PT UP AD NOEMY IN ROOM, ON RA. BED LOCKED IN LOWEST POSITION, CALL LIGHT WITHIN REACH. HOURLY ROUNDING COMPLETED AND ALL NEEDS MET. NURSING WILL CONTINUE TO MONITOR
--- NOTE | 2018-07-21 15:38 | EKG ---
[place] [address] ELECTROCARDIOGRAM REPORT Name: RAMOS MORALES Room: [address] M.R.#: [id number] Admission: 07/20/18 Attend Phys: Daryl Pepper MD, Discharge: 07/21/18 Date of : 51 Report #: [id number] THIS REPORT FOR: //name// [facility] Test Date: 2018-07-21 Test Time: 03:08:16 Pat Name: RAMOS MORALES Department: Room: [address] Gender: F Diamond Cleaner: : 1955 Requested By: Daryl Pepper Order Number: [id number] Reading MD: Daryl Pepper Measurements Intervals [place] Rate: 66 P: -13 AK: 216 QRS: 44 QRSD: 97 T: 32 QT: 436 QTc: 457 Interpretive Statements Sinus rhythm Borderline prolonged AK interval Probable left atrial enlargement Borderline T wave abnormalities Compared to ECG 07/20/2018 12:33:51 T-wave abnormality now present Myocardial infarct finding no longer present Electronically Signed On 07-21-2018 15:38:13 SCIENTIFIC INFORMATICS LEADER by Daryl Pepper [email or web address] <ELECTRONICALLY SIGNED> By: Daryl Pepper MD, [facility] 07/21/18 1538 0308 0308 Daryl Pepper MD, [facility] /EPI
--- NOTE | 2018-07-22 10:28 | D ---
[address] [address] DISCHARGE SUMMARY Name: RAMOS MORALES Room: [address] Marielena Stanley#: [id number] Admission: 07/20/18 Attend Phys: Daryl Pepper MD, Discharge: 07/21/18 Date of : 51 Report #: [id number] THIS REPORT FOR: //name// CC: Daryl Torres Porter DATE OF SERVICE: 07/21/2018 FINAL DISCHARGE DIAGNOSES: 1. Abnormal nuclear stress test. 2. Coronary artery disease. 3. Status post percutaneous coronary intervention of the circumflex on 07/20/2018. 4. Hypertension. 5. Type 2 diabetes. 6. Hyperlipidemia. PROCEDURES: 07/20/2018 -- left heart catheterization, left ventriculography, selective coronary arteriography, percutaneous coronary intervention of the circumflex with deployment of 2 drug-eluting stents. HOSPITAL COURSE: The patient is a very pleasant 62-year-old female with complex coronary artery disease status post dilatation of first diagonal and stenting of the circumflex in December of this last year. Recently, she has noted increased dyspnea on exertion without chest discomfort. Stress test revealed inducible lateral ischemia. In this context, I performed cardiac catheterization on 07/20/2018. That revealed widely patent LAD stent and widely patent dilated first diagonal. There was 90% diffuse in-stent restenosis of the circumflex. I dilated this and deployed 2 [place] drug-eluting stents in the circumflex with 10% residual narrowing and NOAH 3 flow of the distal vessel. Troponin wade inconsequentially to 1.11 and lab revealed sodium of 138, potassium of 4.1, BUN 11, creatinine 0.7, glucose 193, hemoglobin 12.1, white blood cell count 7400 with 243,000 platelets, cholesterol 154, triglycerides 83, HDL 57, LDL 81. The patient ambulated in the hallways without difficulty. She was discharged home on her prior medicines including Lipitor 40 mg at bedtime, losartan 50 mg daily, Coreg 12.5 mg b.i.d., aspirin 81 mg daily and Brilinta 90 mg b.i.d. I will plan to see her in followup on 08/02/2018 [place] [address] DISCHARGE SUMMARY Name: RAMOS MORALES COLEMarilin Room: [address] [place].#: [id number] Admission: 07/20/18 Attend Phys: Daryl Pepper MD, Discharge: 07/21/18 Date of : 51 Report #: [id number] Thus, the patient is discharged to home in stable condition on the aforementioned medications with followup as iterated above. <ELECTRONICALLY SIGNED> By: Daryl Pepper MD, [facility] 07/22/18 1028 0954 1017Jocinthia Pepper MD, FACC /nt
--- NOTE | 2018-07-22 10:46 | CARD ---
[address] [address] CARDIAC CATH REPORT Name: RAMOS MORALES Room: [address] Marielena Stanley#: [id number] Admission: 07/20/18 Attend Phys: Daryl Pepper MD, Discharge: 07/21/18 Date of : 51 Report #: [id number] THIS REPORT FOR: //name// APPROVED REPORT Study performed: 07/20/2018 08:07:12 Patient Details The patient is a 62 year-old female Event Personnel Daryl Pepper Radiagraph Operator, Jeane Poe RN RN, Jaden Ashton, Emmanuel Casey (R) Scrub Procedures Performed Left heart catheterization left ventriculography selective coronary artery anatomy and percutaneous coronary intervention to the circumflex Indication Positive stress test Risk Factors Hypercholesterolemia, Hypertension Previous Procedures/Diagnoses Previous PCI Admission/Lab Medications/Medications given during procedure Aspirin, Platelet Aff. Inhib. Procedure Narrative The patient was brought electively to the Cardiac Catheterization Laboratory and was prepped and draped in a sterile manner. The right femoral was infiltrated with 2% Lidocaine subcutaneous anesthesia. A [place] 6 FR sheath was inserted into the right femoral artery. Coronary angiography was performed using coronary diagnostic catheters. The right coronary system was accessed and visualized with a Diagnostic - JR4 catheter. The left coronary system was accessed and visualized with a Diagnostic - JL4 catheter. The left ventricle was accessed and visualized with a Diagnostic - STR PIG catheter. Left ventricular/Aortic Valve gradient assessed via catheter pullback. Pre-demployment femoral angiogram was performed . Closure device was deployed with a 6 Fr Angioseal STS 6Fr. The patient tolerated the procedure well [place] [address] CARDIAC CATH REPORT Name: RAMOS MORALES COLEMarilin Room: [address] Marielena Stanley#: [id number] Admission: 07/20/18 Attend Phys: Daryl Pepper MD, Discharge: 07/21/18 Date of : 51 Report #: [id number] associated with the procedure. There was no hematoma. Intraoperative Conscious Sedation Sedation start time: 938 Case end Time: 1100 Fentanyl 100 mcg Versed 4 mg Fluoro Time: 22.5 minutes Dose: DAP 763170 cGycm2 2603 mGy Contrast Type and Amount: Visipaque 580 ml Coronary Angiography The patient's coronary anatomy is co- dominant. Diagnostic Cath Left Main 10% distal narrowing LAD Widely patent proximal LAD stent with 30% mid vessel narrowing Circumflex 90% midcircumflex narrowing ascending into a prominent second marginal branch with 90% stenosis in the proximal and mid-portion of a small posterior division of the circumflex Right Coronary Modest size codominant vessel with 50% tubular proximalmid vessel narrowing Left Ventriculography The left ventricle is normal in size with normal contractility. The left ventricular ejection fraction is estimated to be 60%. Mid inferior hypokinesis IVUS Findings NC Trek RX 2.5 X 12 Hemodynamics The aortic pressure is 206/73 mmHg with a mean of 127 mmHg. The left ventricular pressure is 177/7 mmHg with a mean of mmHg. The left ventricular end diastolic pressure is 19 mmHg. There was no gradient across the aortic valve upon pullback. PCI Technique Lesion Anticoagulation was achieved with Angiomax. Patient was preloaded with Angiomax Drip IV 29.7 ml per hrAngiomax IV 13 mg per kg. Percutaneous coronary intervention was performed on the mid circumflex artery segment. The lesion stenosis prior to intervention was 90% with NOAH 3 flow. A 6F XB LAD 3.5 Guide Catheter was used to engage the ostium. A IG: ProwaterFlex 180CM Interventional Guidewire [place] [address] CARDIAC CATH REPORT Name: RAMOS MORALES COLEMarilin Room: [address] Lizeth#: [id number] Admission: 07/20/18 Attend Phys: Daryl Pepper MD, Discharge: 07/21/18 Date of : 51 Report #: [id number] BALLOON DILATION A Balloon catheter Trek RX 2.25 X 12 was inserted and inflated up to 14atm for 12seconds. Additional Inflation: 14atm for 8seconds. Additional Inflation: 16atm for 10seconds. 16 DENZEL FOR 15 SEC STENT DEPLOYMENT A drug-eluting stent Orlando RX Stent 2.29Y41kl, 2.5x18 was inserted and inflated up to 15atm for 1 150seconds. Final angiography reveals 10 % stenosis with NOAH 3 flow. BALLOON DILATION A Balloon catheter NC Trek RX 2.5 X 12 was inserted and inflated up to 16atm for 7seconds. Additional Inflation: 17atm for 9seconds. Additional Inflation: 17atm for 5seconds. 17 DENZEL FOR 4 SEC 17 DENZEL FOR 5 SEC 20 DENZEL FOR 14 SEC 19 DENZEL FOR 11 SEC 22 DENZEL FOR 13 SEC STENT DEPLOYMENT A stent Orlando RX Stent 2.03P20mi was inserted and inflated up to 14.00atm for 10seconds. Additional Inflation: 15.00atm for 9seconds. PCI Technique Lesion 2 Percutaneous Coronary Intervention was performed on the second obtuse marginal branch segment. Stent Deployment A stent [place] RX Stent 2.5X18mm was inserted and inflated up to 14atm for 10seconds. Additional Inflation: 17.00atm for 9seconds. Additional Inflation: 18atm for 10seconds. Conclusion #1 significant coronary artery disease characterized by the following: A 10% distal left main coronary narrowing B widely patent proximal LAD stent with 30% mid vessel narrowing C codominant circumflex with 90% mid vessel narrowing extending into a prominent second marginal branch D 50% tubular proximalmid vessel narrowing of the modest size cod[place] [address] CARDIAC CATH REPORT Name: RAMOS MORALES Room: [address] Marielena Stanley#: [id number] Admission: 07/20/18 Attend Phys: Daryl Pepper MD, Discharge: 07/21/18 Date of : 51 Report #: [id number] #2 normal global left ventricular systolic function, estimate ejection fraction 60% with mild mid inferior hypokinesis #3 mild elevation of left ventricular end-diastolic pressure at rest 4 successful percutaneous coronary intervention with deployment of sequential drug-eluting stents at the site of 90% mid circumflex stenosis extending into the second marginal branch with 10% residual narrowing and NOAH-3 flow to the distal vessel Recommendations Cardiac Risk Reduction Program Aggressive Medical Therapy Medications Administered Aspirin (any) Ticagrelor Diagnostic Cath Approved by: Daryl Pepper MD Date/Time: 07/22/2018 10:45:49 <ELECTRONICALLY SIGNED> By: Daryl Pepper MD, [facility] 07/22/18 1046 1046 1046Daryl Pepper MD, [facility] /INF
== END 2018-07-21 12:42 | disposition home or self-care (01) ==
LOC: M.CL 07:29 → M.2W 10:38 → M.TBA-CV 10:38 → M.2W 11:36
PROVIDERS: ADMIT Internal Medicine
DX: I25.10 Atherosclerotic heart disease of native coronary artery without angina pectoris (principal); I10 Essential (primary) hypertension; E11.9 Type 2 diabetes mellitus without complications; E78.5 Hyperlipidemia, unspecified; Z79.01 Long term (current) use of anticoagulants

== ENCOUNTER → 2018-07-25 | Outpatient (CLI) | payer BC, OTHER ==
[~2018-07-25] MED LIST changes: +COZAAR 25 MG TA25 M2 PO; +LEXAPRO 10 MG T10 MG PO
[2018-07-25 10:03] LABS: CREATININE 0.7 mg/dL (0.6-1.3)
== END ==
LOC: M.CT 07-14 14:10 → M.LAB 09:30 → M.CT 11:00
PROVIDERS: Psychiatry & Neurology Neuromuscular Medicine
DX: I65.01 Occlusion and stenosis of right vertebral artery (principal); E04.2 Nontoxic multinodular goiter; M47.892 Other spondylosis, cervical region; E04.9 Nontoxic goiter, unspecified; H54.7 Unspecified visual loss; I65.21 Occlusion and stenosis of right carotid artery; I10 Essential (primary) hypertension

== ENCOUNTER → 2018-10-20 | Outpatient (CLI) | payer BC, OTHER, MEDICARE | LOC: M.MRI 10-13 13:03 | DX: I77.1 Stricture of artery (principal); I70.1 Atherosclerosis of renal artery; I70.0 Atherosclerosis of aorta; I10 Essential (primary) hypertension ==

== ENCOUNTER → 2018-10-25 | Outpatient (CLI) | payer BC, OTHER, MEDICARE ==
--- NOTE | 2018-10-25 15:18 | 2DMMODE ---
[place] [address] 2 D/M-MODE ECHOCARDIOGRAM Name: CARMENRAMOS FAY Room: [facility]#: [id number] Admission: 10/25/18 Attend Phys: Travis Thomson Discharge: Date of : 51 Date of Service: 10/25/18 1518 Report #: [id number] THIS REPORT FOR: //name// APPROVED REPORT Study performed: 10/25/2018 13:42:23 EXAM: Comprehensive 2D, Doppler, and color-flow Echocardiogram Patient Location: Out-Patient BSA: 1.89 HR: 76 bpm BP: 150/90 mmHg Other Information Study Quality: Good Indications CAD Hypertension/HDD 2D Dimensions IVSd: 11.95 (7-11mm) LVOT Diam: 20.47 (18-24mm) LVDd: 45.46 mm PWd: 13.90 (7-11mm) Ascending Ao: 30.21 (22-36mm) LVDs: 31.53 (25-40mm) Aortic Root: 28.18 mm Volumes Left Atrial Volume (Systole) LA ESV Index: 20.50 mL/m2 Aortic Valve AoV Peak Teo.: 1.52 m/s AO Peak Gr.: 9.26 mmHg LVOT Max P.80 mmHg AO Mean Gr.: 5.01 mmHg LVOT Mean P.56 mmHg LVOT Max V: 0.84 m/s AO V2 VTI: 31.08 cm LVOT Mean V: 0.59 m/s GABBIE (VTI): 2.10 cm2 LVOT V1 VTI: 19.81 cm Mitral Valve E/A Ratio: 0.66 MV Decel. Time: 238.27 ms MV E Max Teo.: 0.67 m/s MV PHT: 69.10 [place] [address] 2 D/M-MODE ECHOCARDIOGRAM Name: RAMOS MORALES MARQUEZ Room: [facility]#: [id number] Admission: 10/25/18 Attend Phys: Travis Thomson Discharge: Date of : 51 Date of Service: 10/25/18 1518 Report #: [id number] MVA (PHT): 3.18 cm2 TDI E/Lateral E': 8.38 E/Medial E': 5.15 Medial E' Teo.: 0.13 m/s Lateral E' Teo.: 0.08 m/s Pulmonary Valve PV Peak Teo.: 1.06 m/s PV Peak Gr.: 4.52 mmHg Left Ventricle The left ventricle is normal size. There is normal LV segmental wall motion. Mild concentric left ventricular hypertrophy. Left ventricular systolic function is normal. LVEF is 55-60%. Grade I - abnormal relaxation pattern. Right Ventricle The right ventricle is normal size. The right ventricular systolic function is normal. Atria The left atrium size is normal. The right atrium size is normal. Aortic Valve The aortic valve is normal in structure. No aortic regurgitation is present. There is no aortic valvular stenosis. Mitral Valve The mitral valve is normal in structure. Mild mitral regurgitation. No evidence of mitral valve stenosis. Tricuspid Valve The tricuspid valve is normal in structure. There is no tricuspid valve regurgitation noted. Pulmonic Valve The pulmonary valve is normal in structure. There is no pulmonic valvular regurgitation. Great Vessels The aortic root is normal in size. IVC is normal in size and collapses >50% with inspiration. Pericardium There is [place] [address] 2 D/M-MODE ECHOCARDIOGRAM Name: RAMOS MORALES MARQUEZ Room: [facility] Lizeth#: [id number] Admission: 10/25/18 Attend Phys: Travis Thomson Discharge: Date of : 51 Date of Service: 10/25/18 1518 Report #: [id number] <Conclusion> The left ventricle is normal size. Mild concentric left ventricular hypertrophy. Left ventricular systolic function is normal. LVEF is 55-60%. Grade I - abnormal relaxation pattern. IVC is normal in size and collapses >50% with inspiration. <ELECTRONICALLY SIGNED> By: Matthew Mckeon MD, FAC 10/25/18 1518 1518 1518 Matthew Mckeon MD, FAC /INF
== END ==
LOC: M.CRD 13:32
DX: I34.0 Nonrheumatic mitral (valve) insufficiency (principal); I25.10 Atherosclerotic heart disease of native coronary artery without angina pectoris; I10 Essential (primary) hypertension; Z88.2 Allergy status to sulfonamides

== ENCOUNTER 2019-05-01 07:08 | Observation (INO) | payer BC, OTHER, MEDICARE ==
[2019-05-01] VITALS (9 sets, daily range): BP systolic 111–168; BP diastolic 54–80
[~2019-05-01] VITALS: Ht 160 cm; Wt 92.1 kg
[~2019-05-01 07:08] MED LIST changes: -CARVEDILOL12.5 MG PO; +CARVEDILOL25 MG PO; -COZAAR 25 MG TA25 M2 PO; +COZAAR 50 MG TA50 M1 PO
[2019-05-01 08:50] LABS: HEMATOCRIT 38.3 % (37.0-47.0); HEMOGLOBIN 12.7 gm/dL (12.0-15.0); MCH 28.8 pg (26.0-34.0); MCV 87.2 fL (80.0-100.0); MPV 9.1 fl. (7.2-11.1); RBC 4.4 mil/uL (4.20-5.00); RDW-CV 14.1 % (10.5-14.5); WBC 8.5 thou/uL (4.0-11.0)
[2019-05-01 09:00] LABS: APTT 28.4 Seconds (25.0-31.3); PROTIME 9.9 Seconds (9.20-11.50)
[2019-05-01 09:01] LABS: ANION GAP 9 mmol/L (7-16); BUN 14 mg/dL (7-18); CALCIUM 9.1 mg/dL (8.5-10.1); CHLORIDE 94 mmol/L (98-107); CO2 28 mmol/L (21-32); CREATININE 0.8 mg/dL (0.6-1.3); POTASSIUM 4.7 mmol/L (3.5-5.1); SODIUM 131 mmol/L (136-145)
[2019-05-01 09:03] LABS: ALBUMIN 3.5 g/dL (3.4-5.0); ALKALINE PHOSPHATASE 124 U/L (46-116); CHOLESTEROL 144 mg/dL (<200); HDL CHOLESTEROL 34 mg/dL (>40); LDL CHOLESTEROL 85 mg/dL (<100); SGOT 15 U/L (15-37); SGPT 32 U/L (30-65); TC:HDL 4.2 Ratio (Not establshd); TOTAL BILIRUBIN 0.3 mg/dL (<0.1-1.0); TRIGLYCERIDE 128 mg/dL (<150); VLDL 26 mg/dL (<40)
[2019-05-01 09:14] LABS: GLUCOSE 554 mg/dL (70-99); SERUM ASSESSMENT Clear
--- NOTE | 2019-05-01 17:17 | NUR ---
ASSUSSMED CARE OF PT FROM DOWEL PIN WORKER. ADMISSION COMPLETED CHARTED. MEDICATIONS GIVEN CHARTED. PT INSTRUCTED ABOUT LAYING FLAT AND WHAT TIME THEY ARE ABLE NOT LAY FLAT.
[2019-05-01] MEDS ORDERED: ASA81BEC PO (17:31)
[2019-05-02] VITALS: BP 166/80
--- NOTE | 2019-05-02 02:43 | NUR ---
PT ALERT ORIENTED. OFF BEDREST UP AD NOEMY. R GROIN SITE NO BRUISING SHERI CARSON. TELEMETRY SHOWS SR. ON RA. WILL CONTINUE TO MONITOR.
[2019-05-02 04:00] VITALS: BP 154/66
[2019-05-02 04:54] LABS: HEMATOCRIT 36.1 % (37.0-47.0); HEMOGLOBIN 11.8 gm/dL (12.0-15.0); MCH 28.3 pg (26.0-34.0); MCHC 32.8 g/dL (28.0-37.0); MCV 86.4 fL (80.0-100.0); MPV 9.1 fl. (7.2-11.1); RBC 4.18 mil/uL (4.20-5.00); RDW-CV 13.9 % (10.5-14.5); WBC 8.3 thou/uL (4.0-11.0)
[2019-05-02 05:11] LABS: ALBUMIN 3.1 g/dL (3.4-5.0); CALCIUM 8.8 mg/dL (8.5-10.1); CREATININE 0.6 mg/dL (0.6-1.3); POTASSIUM 3.9 mmol/L (3.5-5.1); TOTAL BILIRUBIN 0.4 mg/dL (<0.1-1.0); TOTAL PROTEIN 6.2 g/dL (6.4-8.2); TROPONIN-I LEVEL 0.17 ng/mL (<0.06)
[2019-05-02 07:57] VITALS: BP 166/71
--- NOTE | 2019-05-02 09:29 | EKG ---
[place] [address] ELECTROCARDIOGRAM REPORT Name: RAMOS MORALES Room: [address] M.R.#: [id number] Admission: 05/01/19 Attend Phys: Daryl Pepper MD, Discharge: Date of : 51 Report #: [id number] THIS REPORT FOR: //name// [facility] Test Date: 2019-05-01 Test Time: 08:32:19 Pat Name: RAMOS MORALES Department: Room: [facility] Gender: F Head Of Quality: [facility] : 1955 Requested By: Daryl Pepper Order Number: [id number] Reading MD: Matthew Mckeon Measurements Intervals [place] Rate: 71 P: 68 MT: 235 QRS: 24 QRSD: 95 T: 58 QT: 389 QTc: 423 Interpretive Statements Sinus rhythm Prolonged MT interval LAE, consider biatrial enlargement Anteroseptal infarct, old Compared to ECG 07/21/2018 03:08:16 Myocardial infarct finding now present T-wave abnormality no longer present Electronically Signed On 05-02-2019 9:28:58 SCREW MACHINE SET UP OPERATOR by Matthew Mckeon [email or web address] <ELECTRONICALLY SIGNED> By: Matthew Mckeon MD, FACC 05/02/19 0928 Matthew Mckeon MD, FAC /EPI
--- NOTE | 2019-05-02 09:32 | EKG ---
[place] [address] ELECTROCARDIOGRAM REPORT Name: RAMOS MORALES Room: [address] M.R.#: [id number] Admission: 05/01/19 Attend Phys: Daryl Pepper MD, Discharge: Date of : 51 Report #: [id number] THIS REPORT FOR: //name// [facility] Test Date: 2019-05-01 Test Time: 15:13:23 Pat Name: RAMOS MORALES Department: Room: [facility] Gender: F Igniter Capper: : 1955 Requested By: Daryl Pepper Order Number: [id number] Taran MD: Matthew Mckeon Measurements Intervals [place] Rate: 56 P: 67 [place]: 234 QRS: 29 QRSD: 97 T: 105 QT: 441 QTc: 426 Interpretive Statements Sinus rhythm Prolonged [place] interval Borderline T abnormalities, lateral leads Compared to ECG 07/21/2018 03:08:16 No significant changes Electronically Signed On 05-02-2019 9:31:45 ADVOCACY DIRECTOR by Matthew Mckeon [email or web address] <ELECTRONICALLY SIGNED> By: Matthew Mckeon MD, [facility] 05/02/19 0931 1513 1513 Matthew Mckeon MD, FAC /EPI
--- NOTE | 2019-05-02 09:34 | EKG ---
[place] [address] ELECTROCARDIOGRAM REPORT Name: RAMOS MORALES Room: [address] M.R.#: [id number] Admission: 05/01/19 Attend Phys: Daryl Pepper MD, Discharge: Date of : 51 Report #: [id number] THIS REPORT FOR: //name// [facility] Test Date: 2019-05-02 Test Time: 03:28:50 Pat Name: RAMOS MORALES Department: Room: [facility] Gender: F Orthotics Technician: LOGAN : 1955 Requested By: Daryl Pepper Order Number: [id number] Reading MD: Matthew Mckeon Measurements Intervals [place] Rate: 70 P: 82 VT: 221 QRS: 19 QRSD: 92 T: 57 QT: 421 QTc: 455 Interpretive Statements Sinus rhythm Prolonged VT interval Inferior infarct, old, possible Low voltage, precordial leads Compared to ECG 07/21/2018 03:08:16 Low QRS voltage now present T-wave abnormality no longer present Electronically Signed On 05-02-2019 9:34:38 ELECTRIC SOLDERER by Matthew Mckeon [email or web address] <ELECTRONICALLY SIGNED> By: Matthew Mckeon MD, FACC 05/02/19 0934 0328 0328 Matthew Mckeon MD, FACC /EPI
[2019-05-02 09:39] VITALS: BP 166/71
[2019-05-02 11:27] VITALS: BP 166/71
--- NOTE | 2019-05-02 13:35 | NUR ---
VSS, ASSUMED CARE IN THE AM, ASSESSMENT PERFORMED AND CHARTED, FALL PRECAUTIONS IN PLACE AND CALL LIGHT IN REACH, PT DENIES ANY PAIN, IS UP AD NOEMY, TRACING SR ON THE MONITOR, ON RA AND AT THIS TIME HAS BEEN DISCHARGED, PT WAS GIVEN SCRIPTS AND D/C INSTRUCTIONS, PT DENIES ANY QUESTIONS AT TIME OF D/C RIGHT POST CATH SITE IS C/D/I.
--- NOTE | 2019-05-03 14:05 | CARD ---
[address] [address] CARDIAC CATH REPORT Name: RAMOS MORALES Room: [address] Marielena Stanley#: [id number] Admission: 05/01/19 Attend Phys: Daryl Pepper MD, Discharge: 05/02/19 Date of : 51 Report #: [id number] THIS REPORT FOR: //name// APPROVED REPORT Study performed: 05/01/2019 08:04:53 Patient Details Patient Status: Out-Patient Room #: The patient is a 63 year-old female Event Personnel Daryl Pepper Machinery Erector, Jessica Cevallos RN Wet Wheeler, Chuckie Flores RTR Scrub, Gisselle Marshall RTR Monitor Procedures Performed Art Access - R femoral artery, Left Heart Cath w/or w/o Coronaries LHC, ESTHER w/Atherectomy Single LAD , ESTHER Place w/wo Plasty Addl BR OM 2, Hemostasis w/ Angioseal Indication Positive stress test Risk Factors Family History, Hypercholesterolemia, Hypertension Admission/Lab Medications/Medications given during procedure Angiomax IV 14 mg per kg, Angiomax IV 32.76 mg per kg, Angiomax IV 5 mg per kg, Ticagrelor PO 180 mg, Oxygen Nasal cannula 2 l per min Procedure Narrative The patient was brought electively to the Cardiac Catheterization Laboratory and was prepped and draped in a sterile manner. The right femoral was infiltrated with 2% Lidocaine subcutaneous anesthesia. A [place] 6 FR sheath was inserted into the right femoral artery. Coronary angiography was performed using coronary diagnostic catheters. The right coronary system was accessed and visualized with a 6F JR4 catheter. The left coronary system was accessed and visualized with a 6F JL4 catheter. The left ventricle was accessed and visualized with a 6F Pigtail catheter. Left ventricular/Aortic Valve gradient assessed via catheter pullback. Pre-demployment femoral angiogram was performed . Closure device was deployed with a 6 [place] [address] CARDIAC CATH REPORT Name: RAMOS MORALES Room: [address]#: [id number] Admission: 05/01/19 Attend Phys: Daryl Pepper MD, Discharge: 05/02/19 Date of : 51 Report #: [id number] Intraoperative Conscious Sedation Sedation start time: 12:58 Case end Time: 14:12 Fentanyl 50 mcg Versed 3 mg Fluoro Time: 21.1 minutes Dose: DAP 518649 cGycm2 2473 mGy Contrast Type and Amount: Visipaque 360 ml Coronary Angiography The patient's coronary anatomy is left dominant. Diagnostic Cath Left Main 0% narrowing LAD 80% mid LAD stenosis Circumflex 90% second marginal stenosis after a long circumflex stent with 40% proximal first marginal narrowing Right Coronary Small nondominant vessel with 40% proximal and mid vessel narrowing Left Ventriculography The left ventricle is normal in size with normal contractility. The left ventricular ejection fraction is estimated to be 65%. Left ventricular wall motion abnormalities are not present. There is no mitral insufficiency. Hemodynamics The aortic pressure is 111/52 mmHg with a mean of 72 mmHg. The left ventricular pressure is 122/-9 mmHg with a mean of mmHg. The left ventricular end diastolic pressure is 12 mmHg. There was no gradient across the aortic valve upon pullback. PCI Technique Lesion Anticoagulation was achieved with Angiomax. Patient was preloaded with Angiomax IV 19 mg per kg. Percutaneous coronary intervention was performed on the second obtuse marginal branch segment. The lesion stenosis prior to intervention was 90% with NOAH 3 flow. A 6F XB LAD 3.5 Guide Catheter was used to engage the ostium. A [employer] Flex 180 cm Interventional Guidewire was used to cross the lesion. BALLOON DILATION A Balloon catheter Trek RX 2.25 x 12 was inserted and inflated up to 12.00atm for 11seconds. Additional Inflation: 12.00atm for 8seconds. Additional Inflation: 10.00atm for 7seconds[place] [address] CARDIAC CATH REPORT Name: RAMOS MORALES Room: [address] Marielena M.RTim#: [id number] Admission: 05/01/19 Attend Phys: Daryl Pepper MD, Discharge: 05/02/19 Date of : 51 Report #: [id number] A drug-eluting stent Jorge RX 2.25 x 26 was inserted and inflated up to 12.00atm for 14seconds. Additional Inflation: 12.00atm for 14seconds. POST STENT DEPLOYMENT BALLOON DILATION A Balloon catheter NC Trek RX 2.5 x 12 was inserted and inflated up to 14.00atm for 9seconds. Additional Inflation: 16.00atm for 14seconds. Additional Inflation: 17.00atm for 13seconds. Final angiography reveals 0 % stenosis with NOAH 3 flow. PCI Technique Lesion 2 Percutaneous Coronary Intervention was performed on the mid left anterior descending artery segment. The lesion stenosis prior to intervention was 80% with NOAH 3 flow. Balloon Dilation A Balloon catheter Angiosculpt RX 2.5 x 6 was inserted and inflated up to 12atm for 7seconds. Additional Inflation: 14atm for 9seconds. Additional Inflation: 16atm for 8seconds. A 2.75 x 12 NC Trek RX balloon was inserted and inflated 15 javon, 11 seconds. 12 javon, 5 seconds. 16 javon, 14 seconds. Stent Deployment A drug-eluting stent Orsiro RX 2.75 x 22 was inserted and inflated up to 10atm for 8seconds. Additional Inflation: 12atm for 9seconds. Final angiography reveals 0 % stenosis with NOAH 3 flow. Conclusion #1 significant coronary artery disease characterized by the following: A 80% focal mid LAD stenosis B dominant circumflex with 40% first marginal narrowing and 90% stenosis of the second marginal branch of the circumflex C small nondominant right coronary artery with 40% proximalmid vessel narrowing #2 normal left ventricular systolic function, estimate ejection fraction 65% [address] [address] CARDIAC CATH REPORT Name: RAMOS MORALES Room: [address] Marielena LingRTim#: [id number] Admission: 05/01/19 Attend Phys: Daryl Pepper MD, Discharge: 05/02/19 Date of : 51 Report #: [id number] #3 normal left-sided hemodynamics study #4 successful percutaneous coronary intervention with deployment of a drug-eluting stent at the site of 90% second marginal stenosis with 0% residual narrowing #5 successful atherotomy/ atherectomy and stenting at site of 80% mid LAD stenosis with 0% residual narrowing and NOAH-3 flow the distal vessel Recommendations Cardiac Risk Reduction Program Aggressive Medical Therapy Medications Administered Ticagrelor Diagnostic Cath Approved by: Daryl Pepper MD Date/Time: 05/03/2019 14:04:50 <ELECTRONICALLY SIGNED> By: Daryl Pepper MD, FAC 05/03/19 1405 1405 1405Daryl Pepper MD, FACC /INF
--- NOTE | 2019-05-04 10:26 | D ---
[address] [address] DISCHARGE SUMMARY Name: RAMOS MORALES Room: [address] Marielena Stanley#: [id number] Admission: 05/01/19 Attend Phys: Daryl Pepper MD, Discharge: 05/02/19 Date of : 51 Report #: [id number] THIS REPORT FOR: //name// CC: Daryl Torres Porter DATE OF SERVICE: 05/02/2019 The patient is a very pleasant 63-year-old female with diabetes, hypertension and aggressive coronary artery disease. FINAL DISCHARGE DIAGNOSES: 1. Coronary artery disease. 2. Recently abnormal nuclear stress test. 3. Diabetes mellitus. 4. Hyperlipidemia. 5. Hypertension. 6. Weight excess. HOSPITAL COURSE: The patient is a 63-year-old female with multiple risk factors as noted above. Recently, she had an abnormal nuclear stress test and cardiac catheterization was performed in that context on 05/01/2019. There was 90% stenosis in the second marginal branch of the circumflex just beyond the previously deployed stent with 75-80% mid LAD stenosis. I performed angioplasty with stenting of the distal circumflex and atherectomy with stenting of the mid LAD with a good angiographic result and 0% residual narrowing at both sites with NOAH 3 flow of the distal vessel. Troponin wade inconsequentially to 0.17. Sodium 137, potassium 3.9, BUN 9, creatinine 0.6. Hemoglobin 11.8, white blood cell count 8300 with 252,000 platelets. The patient ambulated in the hallways without difficulty. There was good hemostasis at the right femoral site of catheterization. DISCHARGE MEDICATIONS: The patient was discharged to home on the following medications: Aspirin 81 mg daily, atorvastatin 40 mg at bedtime, carvedilol 25 mg b.i.d., Zyrtec 10 mg daily, Lexapro 10 mg daily, glipizide 5 mg b.i.d., losartan 50 mg daily, metformin 500 mg b.i.d. to be resumed on 05/04, ticagrelor 90 mg b.i.d. She is scheduled to return to see us in followup by nurse practitioner on 05/16/2019, myself on 06/13/2019. [place] [address] DISCHARGE SUMMARY Name: RAMOS MORALES Room: [address] Marielena Stanley#: [id number] Admission: 05/01/19 Attend Phys: Daryl Pepper MD, Discharge: 05/02/19 Date of : 51 Report #: [id number] Therefore, the patient is discharged to home in stable condition on 05/02/2019. <ELECTRONICALLY SIGNED> By: Daryl Pepper MD, [facility] 05/04/19 1026 0930 0945John Sushil Pepper MD, FACC /nt
== END 2019-05-02 13:40 | disposition home or self-care (01) ==
LOC: M.CL 07:08 → M.TBA-CV 14:31 → M.2W 14:31 → M.CL 05-04 09:00
PROVIDERS: ADMIT Internal Medicine
DX: I25.10 Atherosclerotic heart disease of native coronary artery without angina pectoris (principal); E11.9 Type 2 diabetes mellitus without complications; E78.5 Hyperlipidemia, unspecified; I10 Essential (primary) hypertension; R63.5 Abnormal weight gain; Z68.36 Body mass index [BMI] 36.0-36.9, adult; Z79.84 Long term (current) use of oral hypoglycemic drugs; Z79.82 Long term (current) use of aspirin; Z79.899 Other long term (current) drug therapy

== ENCOUNTER 2020-01-10 18:09 | Emergency (ER) | payer BC, OTHER, MEDICARE ==
[~2020-01-10] VITALS: Ht 160 cm; Wt 95.3 kg
[~2020-01-10 18:09] MED LIST changes: +ASA81BEC PO
[2020-01-10 18:55] LABS: ABSOLUTE BASOPHILS 0.1 thou/uL (0.0-0.2); ABSOLUTE EOSINOPHILS 0.2 thou/uL (0.0-0.7); ABSOLUTE LYMPHOCYTES 1.9 thou/uL (0.8-5.3); ABSOLUTE MONOCYTES 0.9 thou/uL (0.0-1.2); ABSOLUTE NEUTROPHILS 5.7 thou/uL (1.6-8.1); EOSINOPHILS 1.7 %; HEMATOCRIT 40.9 % (37.0-47.0); HEMOGLOBIN 13.6 gm/dL (12.0-15.0); LYMPHOCYTES 21.2 %; MCH 29.2 pg (26.0-34.0); MCHC 33.4 g/dL (28.0-37.0); MCV 87.5 fL (80.0-100.0); MONOCYTES 10.8 %; MPV 9.5 fl. (7.2-11.1); NUCLEATED RBCS 0 /100WBC; PLATELET COUNT* 296 thou/uL (150-400); POLYS 65.3 %; RBC 4.68 mil/uL (4.20-5.00); RDW-CV 13.6 % (10.5-14.5); WBC 8.7 thou/uL (4.0-11.0)
[2020-01-10 19:03] LABS: CALCIUM 9.5 mg/dL (8.5-10.1); CREATININE 0.9 mg/dL (0.6-1.3); POTASSIUM 4.7 mmol/L (3.5-5.1)
[2020-01-10 19:04] LABS: APTT 28.7 Seconds (25.0-31.3); INR 0.9; PROTIME 9.3 Seconds (9.20-11.50)
[2020-01-10 19:08] LABS: ALBUMIN 4.1 g/dL (3.4-5.0); TOTAL BILIRUBIN 0.3 mg/dL (<0.1-1.0); TOTAL PROTEIN 8.1 g/dL (6.4-8.2)
[2020-01-10 21:30] VITALS: BP 152/70
--- NOTE | 2020-01-11 08:47 | EKG ---
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: ID : [id number] Requested By: Alexandra John Order Number: [id number] MD: Woody Ho Measurements Intervals [place] Rate: 79 P: 66 [place]: 205 QRS: 29 QRSD: 100 T: 56 QT: 391 QTc: 449 Interpretive Statements Sinus rhythm Right atrial enlargement Anteroseptal infarct, old Compared to ECG 05/02/2019 03:28:50 Atrial abnormality now present Myocardial infarct finding still present Electronically Signed On 01-11-2020 8:47:00 CDT by Woody Ho [email or web address] <ELECTRONICALLY SIGNED> By: Woody Ho MD, FAC 01/11/20 0847 1900 1900 Woody Ho MD, [facility] /EPI
== END 2020-01-10 21:30 | disposition short-term general hospital (02) ==
LOC: M.ERS 18:09
PROVIDERS: Personal Emergency Response Attendant
DX: S01.01XA Laceration without foreign body of scalp, initial encounter (principal); I16.0 Hypertensive urgency; Z20.828 Contact with and (suspected) exposure to other viral communicable diseases; E11.65 Type 2 diabetes mellitus with hyperglycemia; I10 Essential (primary) hypertension; Z90.49 Acquired absence of other specified parts of digestive tract; Z90.710 Acquired absence of both cervix and uterus; Z90.89 Acquired absence of other organs; Z88.2 Allergy status to sulfonamides; Z87.891 Personal history of nicotine dependence; W18.39XA Other fall on same level, initial encounter; Y93.89 Activity, other specified; Y92.098 Other place in other non-institutional residence as the place of occurrence of the external cause; Y99.8 Other external cause status

== ENCOUNTER → 2020-09-25 | Outpatient (CLI) | payer OTHER | LOC: M.CT 13:08 | PROVIDERS: ATTEND Nurse Practitioner Family | DX: S05.11XA Contusion of eyeball and orbital tissues, right eye, initial encounter (principal); X58.XXXA Exposure to other specified factors, initial encounter; Y93.89 Activity, other specified; Y92.89 Other specified places as the place of occurrence of the external cause; Y99.8 Other external cause status ==

== ENCOUNTER 2021-03-19 07:31 | Observation (INO) | payer OTHER ==
[~2021-03-19] VITALS: Ht 152.4 cm; Wt 103.0 kg
[2021-03-19] VITALS (13 sets, daily range): BP systolic 119–175; BP diastolic 61–86
[2021-03-19] MEDS ORDERED: JARDIANCE25 MG PO (07:58)
[2021-03-19 08:09] LABS: HEMATOCRIT 40.6 % (37.0-47.0); HEMOGLOBIN 13.5 gm/dL (12.0-15.0); MCH 28.7 pg (26.0-34.0); MCHC 33.2 g/dL (28.0-37.0); MCV 86.5 fL (80.0-100.0); MPV 9.8 fl. (7.2-11.1); RBC 4.7 mil/uL (4.20-5.00); WBC 9.9 thou/uL (4.0-11.0)
[2021-03-19 08:20] LABS: ANION GAP 10 mmol/L (7-16); BUN 22 mg/dL (7-18); CALCIUM 9.4 mg/dL (8.5-10.1); CHLORIDE 97 mmol/L (98-107); CO2 26 mmol/L (21-32); CREATININE 0.7 mg/dL (0.6-1.3); GLUCOSE 331 mg/dL (70-99); POTASSIUM 4.6 mmol/L (3.5-5.1); SODIUM 133 mmol/L (136-145)
[2021-03-19 08:24] LABS: ALKALINE PHOSPHATASE 112 U/L (46-116); CHOLESTEROL 164 mg/dL (<200); HDL CHOLESTEROL 39 mg/dL (>40); LDL CHOLESTEROL 83 mg/dL (<100); SGOT 15 U/L (15-37); SGPT 29 U/L (30-65); TC:HDL 4.2 Ratio (Not establshd); TOTAL BILIRUBIN 0.3 mg/dL (<0.1-1.0); TOTAL PROTEIN 7.7 g/dL (6.4-8.2); TRIGLYCERIDE 214 mg/dL (<150); VLDL 43 mg/dL (<40)
[2021-03-19 08:26] LABS: SERUM ASSESSMENT Clear
[2021-03-19 08:28] LABS: APTT 24.8 Seconds (25.0-31.3); INR 0.9; PROTIME 9.9 Seconds (9.20-11.50)
--- NOTE | 2021-03-19 14:47 | EKG ---
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 : 1955 Requested By: Daryl Pepper Order Number: [id number] Reading MD: Daryl Pepper Measurements Intervals [place] Rate: 74 P: 73 TN: 230 QRS: 28 QRSD: 106 T: 22 QT: 402 QTc: 446 Interpretive Statements Sinus rhythm Prolonged TN interval LAE, consider biatrial enlargement Anterior infarct, old Baseline wander in lead(s) V4 Compared to ECG 01/10/2020 19:00:06 First degree AV block now present Myocardial infarct finding still present Electronically Signed On 03-19-2021 14:47:24 CDT by Daryl Pepper [email or web address] <ELECTRONICALLY SIGNED> By: Daryl Pepper MD, [facility] 03/19/21 1447 0837 Daryl Pepper MD, [facility] /EPI
--- NOTE | 2021-03-19 14:52 | EKG ---
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1955 Requested By: Daryl Pepper Order Number: [id number] Reading MD: Daryl Pepper Measurements Intervals [place] Rate: 79 P: 72 AR: 237 QRS: 27 QRSD: 95 T: 57 QT: 396 QTc: 455 Interpretive Statements Sinus rhythm Prolonged AR interval Consider right atrial enlargement Anterior infarct, old Compared to ECG 03/19/2021 08:37:10 No significant changes Electronically Signed On 03-19-2021 14:52:01 CDT by Daryl Pepper [email or web address] <ELECTRONICALLY SIGNED> By: Daryl Pepper MD, FAC 03/19/21 1452 1107 1107 Daryl Pepper MD, [facility] /EPI
--- NOTE | 2021-03-19 15:08 | CARD ---
[address] [address] CARDIAC CATH REPORT Name: RAMOS MORALES Room: [address] Marielena Stanley#: [id number] Admission: 03/19/21 Attend Phys: Daryl Pepper MD, Discharge: Date of : 51 Report #: [id number] THIS REPORT FOR: cc: Brian Porter Russell J. DO Holkins,Daryl Ling MD [facility] ~ APPROVED REPORT Study performed: 03/19/2021 08:10:23 Patient Details Patient Status: Out-Patient Room #: The [facility] a 65 [facility] Personnel Jaden Ashton, Fany Luque RN, Jessica Cevallos RN, Talita Neal RTR, Catherine Vazquez RTR Procedures Performed Left heart cath with LV gram, drug eluting stent in the proximal RCA, ACT x 2 Indication Positive stress test Risk Factors Obesity, Hypercholesterolemia, Hypertension, Diabetes Previous Procedures/Diagnoses Previous PCI Procedure Narrative The patient was brought electively to the Cardiac Catheterization Laboratory and was prepped and draped in a sterile manner. The right femoral was infiltrated with 2% Lidocaine subcutaneous anesthesia. IV conscious sedation was used throughout procedure with appropriate monitoring and was performed in the presence of a registered nurse who was an independent trained observer other than the physician performing the procedure. A 6Fr [place]aks Sheath sheath was inserted into the right femoral artery. Coronary angiography was performed using coronary diagnostic catheters. The right coronary system was accessed and visualized with a Diagnostic JR4 catheter. The left coronary system was accessed and visualized with a Diagnostic JL4 catheter. The left ventricle was accessed and visualized with a [place] [address] [place] [address] CARDIAC CATH REPORT Name: RAMOS MORALES MARQUEZ Room: [address] Marielena Stanley#: [id number] Admission: 03/19/21 Attend Phys: Daryl Pepper MD, Discharge: Date of : 51 Report #: [id number] Pigtail catheter. Left ventricular/Aortic Valve gradient assessed via catheter pullback. Left ventriculogram was performed in GAUTAM projection. Pre-demployment femoral angiogram was performed in GAUTAM. Closure device was deployed with a 6 Fr Angioseal. The patient tolerated the procedure well and there were no complications associated with the procedure. There was no hematoma. Intraoperative Conscious Sedation Sedation start time: 927 Case end Time: 1006 Fentanyl 50.0 mcg Versed 2.0 mg Fluoro Time: 10.6 minutes Dose: DAP 191362 cGycm2 2204 mGy Contrast Type and Amount: 280ml Omnipaque Coronary Angiography The patient's coronary anatomy is right dominant. Diagnostic Cath Left Main 20% distal narrowing LAD Widely patent proximalmid LAD stents with 20% proximal LAD narrowing Circumflex Prominent though nondominant vessel with widely patent mid vessel stents and 30% distal narrowing Right Coronary Moderate size dominant vessel with 80% tubular proximalmid vessel narrowing and 40% tubular distal right coronary narrowing Left Ventriculography The left ventricle is normal in size with normal contractility. The left ventricular ejection fraction is estimated to be 60%. Left ventricular wall motion abnormalities are not present. There is no mitral insufficiency. Hemodynamics The aortic pressure is 193/84 mmHg with a mean of 130 mmHg. The left ventricular pressure is 187/6 mmHg with a mean of 18 mmHg. The left ventricular end diastolic pressure is 18 mmHg. There was no gradient across the aortic valve upon pullback. Pullback from the left ventricle to the aorta revealed no gradient across the aortic valve. [place] [address] CARDIAC CATH REPORT Name: RAMOS MORALES Room: [address] M.R.#: [id number] Admission: 03/19/21 Attend Phys: Daryl Pepper MD, Discharge: Date of : 51 Report #: [id number] Anticoagulation was achieved with Angiomax. Percutaneous coronary intervention was performed on the proximamid l right coronary artery. The lesion stenosis prior to intervention was 80% with NOAH 3 flow. A 6Fr JR4SH Guide Catheter was used to engage the right ostium. A BMW Interventional Guidewire was used to cross the lesion. BALLOON DILATION A Balloon catheter 2.0 x 12 mini Trek was inserted and inflated up to 16atm for 5seconds. STENT DEPLOYMENT A drug-eluting stent 2.25 x 34 [place] was inserted and inflated up to 18atm for 8seconds. Additional Inflation: 14atm for 6seconds. POST STENT DEPLOYMENT BALLOON DILATION A Balloon catheter 2.25 x 12 NC Trek was inserted and inflated up to 14atm for 8seconds. Additional Inflation: 16atm for 5seconds. Additional Inflation: 20atm for 11seconds. Final angiography reveals 10 % stenosis with NOAH 3 flow. Conclusion 1. Significant multivessel coronary artery disease characterized by the following: A 20% distal left main coronary narrowing B widely patent proximalmid LAD stents C widely patent mid circumflex stents with 30% distal narrowing D modest size dominant right coronary artery with 80% tubular proximalmid vessel narrowing and 40% tubular distal narrowing 2. Normal LV function, estimate ejection fraction being 60% 3. Systemic systolic hypertension with moderate elevation of left ventricular end-diastolic pressure at rest 4. Successful PCI with deployment of a drug-eluting stent at the site of 80% tubular proximal - mid right coronary stenosis with 10% residual narrowing and NOAH-3 flow to the distal [place] [address] CARDIAC CATH REPORT Name: RAMOS MORALES COLEMarilin Room: [address] Marielena M.RTim#: [id number] Admission: 03/19/21 Attend Phys: Daryl Pepper MD, Discharge: Date of : 51 Report #: [id number] Cardiac Risk Reduction Program Medications Administered Aspirin (any) Ticagrelor Diagnostic Cath Approved by: Daryl Pepper MD Date/Time: 03/19/2021 15:06:05 <ELECTRONICALLY SIGNED> By: Daryl Pepper MD, [facility] 03/19/21 1508 1508 [id number] Pepper MD, FAC /INF
[2021-03-20] VITALS: BP 162/81
[2021-03-20 03:48] VITALS: BP 160/80
[2021-03-20 04:31] LABS: HEMATOCRIT 39.1 % (37.0-47.0); HEMOGLOBIN 12.7 gm/dL (12.0-15.0); MCH 28.5 pg (26.0-34.0); MCHC 32.6 g/dL (28.0-37.0); MCV 87.4 fL (80.0-100.0); RBC 4.47 mil/uL (4.20-5.00); RDW-CV 14.1 % (10.5-14.5); WBC 9.1 thou/uL (4.0-11.0)
[2021-03-20 06:19] LABS: ALBUMIN 3.6 g/dL (3.4-5.0); CALCIUM 9.1 mg/dL (8.5-10.1); CK-MB MASS 2.2 ng/mL (<0.5-3.6); CREATININE 0.7 mg/dL (0.6-1.3); POTASSIUM 4.7 mmol/L (3.5-5.1); TOTAL BILIRUBIN 0.4 mg/dL (<0.1-1.0); TOTAL PROTEIN 7.2 g/dL (6.4-8.2)
[2021-03-20] MEDS ORDERED: BRILINTA90 MG PO (08:10)
--- NOTE | 2021-03-20 11:22 | EKG ---
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 : 1955 Requested By: Daryl Pepper Order Number: [id number] Reading MD: Matthew Mckeon Measurements Intervals [place] Rate: 78 P: 72 MA: 224 QRS: 19 QRSD: 91 T: 59 QT: 392 QTc: 447 Interpretive Statements Sinus rhythm Prolonged MA interval Probable left atrial enlargement Anterior infarct, old Baseline wander in lead(s) V1,V3 Compared to ECG 03/19/2021 11:07:16 No significant changes Electronically Signed On 03-20-2021 11:21:59 CDT by Matthew Mckeon [email or web address] <ELECTRONICALLY SIGNED> By: Matthew Mckeon MD, FACC 03/20/21 1121 6 6 Matthew Mckeon MD, FACC /EPI
[2021-03-20 11:40] VITALS: BP 176/83
[2021-03-20 11:45] VITALS: BP 176/83
--- NOTE | 2021-03-20 12:37 | D ---
[address] [address] DISCHARGE SUMMARY Name: RAMOS MORALES Room: [address] Marielena Stanley#: [id number] Admission: 03/19/21 Attend Phys: Daryl Pepper MD, Discharge: Date of : 51 Report #: [id number] THIS REPORT FOR: cc: Brian Porter Russell J. DO Holkins,Daryl Ling MD [facility] ~ DATE OF DISCHARGE: 03/20/2021 FINAL DISCHARGE DIAGNOSES: 1. Abnormal nuclear stress test. 2. Dyspnea on exertion. 3. Type 2 diabetes. 4. Hypertension. 5. Hyperlipidemia. 6. Status post deployment of drug-eluting stent in the right coronary artery. PROCEDURES: On 03/19/2021 -- left heart catheterization, left ventriculography, selective coronary arteriography, and percutaneous permanent deployment of drug-eluting stent at site of 80% tubular proximal -- mid right coronary stenosis. HOSPITAL COURSE: The patient is a very pleasant 65-year-old female with complex coronary artery disease, status post remote stenting of the LAD and circumflex. Recently, she has noted increased dyspnea on exertion. A nuclear stress test revealed inducible inferior ischemia. In that context and with known risk factors of diabetes, hypertension, hyperlipidemia, she underwent cardiac catheterization on 03/19/2021. That study revealed widely patent LAD and circumflex stents. There was 80% tubular proximal -- mid right coronary stenosis. I deployed one 2.25 x 34 mm Jorge drug-eluting stent, post-dilating it to a 2.3 mm with a 10% residual narrowing and NOAH-3 flow in the distal vessel. The patient did well post-procedurally. She had no chest pain and ambulated in the hallways without difficulty with good hemostasis at the right femoral site of catheterization. LABORATORY DATA: Revealed a sodium 134, potassium 4.7, BUN 15, creatinine 0.7, glucose 216. White blood cell count 9100, hemoglobin 12.7, hematocrit 39.1, platelets 241,000. DISCHARGE MEDICATIONS: The patient was restarted on Brilinta post-procedurally and was discharged home on the following medications: Brilinta 90 mg b.i.d., Zyrtec 10 mg daily, atorvastatin 40 mg at bedtime, p.r.n. sublingual nitroglycerin 0.4 mg as needed, metformin 500 mg b.i.d. to be resumed on 03/21/2021, glipizide 5 mg b.i.d., carvedilol 25 mg b.i.d., losartan [address] [place] [address] DISCHARGE SUMMARY Name: RAMOS MORALES Room: [address] Marielena M.R.#: [id number] Admission: 03/19/21 Attend Phys: Daryl Pepper MD, Discharge: Date of : 51 Report #: [id number] daily, Lexapro 10 mg daily, enteric-coated aspirin 162 mg/81 mg daily and Jardiance 25 mg daily. I will plan to see the patient in followup on 04/17/2021 at the [facility]. Therefore, the patient is discharged home in stable condition on the aforementioned medications with followup as described above. <ELECTRONICALLY SIGNED> By: Daryl Pepper MD, [facility] 03/20/21 1237 0820 [id number] Pepper MD, [facility] /nt
== END 2021-03-20 12:35 | disposition home or self-care (01) ==
LOC: M.CL 07:31 → M.TBA-CV 10:24 → M.2W 17:02
PROVIDERS: ADMIT Internal Medicine; ATTEND Internal Medicine
DX: I25.10 Atherosclerotic heart disease of native coronary artery without angina pectoris (principal); Z20.822 Contact with and (suspected) exposure to COVID-19; I10 Essential (primary) hypertension; E11.9 Type 2 diabetes mellitus without complications; E78.5 Hyperlipidemia, unspecified; E66.9 Obesity, unspecified; Z79.82 Long term (current) use of aspirin; Z79.899 Other long term (current) drug therapy